=== PATIENT | male | born 1950 | race Caucasian/White ===

== ENCOUNTER 2017-08-24 09:22 | Day surgery (SDC) | payer MEDICARE, OTHER ==
[~2017-08-24] VITALS: Ht 175.3 cm; Wt 129.3 kg
[~2017-08-24 09:22] MED LIST: AMLO10TA2 PO; ASPI-999 PO; CETI-176 PO; FINA5TAB6 PO; HYDR25TA4 PO; PROP225T2 PO; PSEU240T6 PO; RANI-515 PO; RANI150T46 PO; RIVA20TA PO; VALS160T2 PO; VIT1CAPS5 PO
--- OUTSIDE RECORDS SUMMARY | 2017-08-24 09:29 | XMS REPORT ---
Author Author Axel Rader Organization [employer] Address Unknown Phone Unavailable Care Team Providers Care Bog Worker Name Role Phone Axel Rader CP Unavailable Allergies No Known Allergies Problems Problem Type Condition Code Onset Dates Condition Status Problem Chronic Anticoagulation V58.61 Active Problem Atrial flutter 427.32 Active Problem Cardiomyopathy, Nonischemic 425.4 Active Problem Hypertension 401.9 Active Problem Pre-operative cardiovascular examination V72.81 Active Problem Abnormal EKG 794.31 Active Medications No Known Medications Results No Known Results Summary Purpose eClinicalWorks Submission
[2017-08-24] MEDS ORDERED: TIMOLOL MALEATE 0.5% 5 ML (TIMOPTIC) BTL OU PRN (09:30)
[2017-08-24] MEDS ORDERED: LIDOCAINE PF 1% 2 ML AMP IR PRN (09:30)
[2017-08-24] MEDS ORDERED: EPINEPHrine INJECTION 1 MG/ML AMP INJ ONE (09:30)
[2017-08-24] MEDS ORDERED: VANCOMYCIN/BSS (COMPOUNDED) 10 MG/ML SYR OP ONE (09:30)
[2017-08-24] MEDS ORDERED: POVIDONE (BETADINE) OPHTH SOLN 5% 30 ML OP ONE (09:30)
--- OUTSIDE RECORDS SUMMARY | 2017-08-24 09:30 | XMS REPORT ---
Author Author Axel Rader Organization [facility] Address [address] [place] [address] Care Team Providers Care Director Of Development And Marketing Name Role Phone Axel Rader Unavailable PROBLEMS Type Condition ICD9-CM Code MVK27-SW Code Onset Dates Condition Status SNOMED Code Problem Abnormal EKG 794.31 Active 854551940 Problem Atrial flutter 427.32 Active 9724165 Problem Pre-operative cardiovascular examination V72.81 Active 045626939 Problem Hypertension 401.9 Active 78367306 Problem Atrial flutter I48.92 Active 0678652 Problem Chronic anticoagulation Z79.01 Active 135025140 Problem Cardiomyopathy, Nonischemic 425.4 Active 67585291 Problem Chronic Anticoagulation V58.61 Active 540263760 Problem Cardiomyopathy, nonischemic I42.9 Active 82161455 Problem Essential (primary) hypertension I10 Active 88997673 ALLERGIES Unknown Allergies SOCIAL HISTORY No smoking Hx information available PLAN OF CARE VITAL SIGNS MEDICATIONS Medication Instructions Dosage Frequency Start Date End Date Duration Status Xarelto 20 MG Orally Once a day 1 tablet with food 24h Jun, 30 day(s) Active RESULTS No Results PROCEDURES No Known procedures IMMUNIZATIONS No Known Immunizations
--- OUTSIDE RECORDS SUMMARY | 2017-08-24 09:30 | XMS REPORT | Continuity of Care Document ---
Author Author [facility] Organization [facility] Address Unknown Phone Unavailable Allergies Active Description Code Type Severity Reaction Onset Reported/Identified Relationship to Patient Clinical Status Yes DOXYCYCLINE HYCLATE MODERATE OTHER Yes doxycycline doxycycline Drug Allergy Unknown U 07/24/2014 Yes doxycycline [id number] Drug Allergy Unknown muscle spasms 03/29/2015 Medications Medication Packaging Start Date Stop Date Route Dosage Sig POLY/BACI/NEOM OINT OINT (NEOSPORIN) lexi 10/23/2016 10/23/2016 ONCE&2140 TETANUS,DIPTH,PERT ADULT INJ 0 (ADACEL SYRINGE) ml 10/23/2016 10/23/2016 ONCE&2141 CEPHALEXIN CAP 500 MG (KEFLEX) MG 10/23/2016 10/23/2016 ONCE&2141 Problems Date Dx Coded Attending Type Code Diagnosis Diagnosed By 03/29/2015 REKHA STERLING, LILY Lee Ot K57.90 DVRTCLOS OF INTEST, PART UNSP, W/O PERF 03/29/2015 REKHA STERLING, LILY Lee Ot K63.5 POLYP OF COLON 03/31/2015 REKHA STERLING, LILY Lee Ot Z01.818 03/31/2015 REKHA STERLING, LILY Lee Ot Z86.010 04/15/2015 REKHA STERLING, LILY Lee Ot Z01.818 04/15/2015 REKHA STERLING, LILY Lee Ot Z86.010 08/04/2015 Prasanth STERLING, Wassim H F E66.3 OVERWEIGHT 08/04/2015 Prasanth STERLING, Wassim H F I10 ESSENTIAL (PRIMARY) HYPERTENSION 08/04/2015 Prasanth STERLING, Wassim H F I48.91 UNSPECIFIED ATRIAL FIBRILLATION 08/04/2015 Prasanth STERLING, Wassim H F K21.9 GASTRO-ESOPHAGEAL REFLUX DISEASE WITHOUT ESOPHAGIT 08/04/2015 Prasanth STERLING, Wascarleenm H F Z68.41 BODY MASS INDEX (BMI) 40.0-44.9, ADULT 10/23/2016 ARABELLA RAJAN 883.1 OPEN WOUND OF FINGERS, COMPLICATED 10/23/2016 ARABELLA RAJAN S61.011A LACERATION W/O FB OF RIGHT THUMB W/O DAMAGE TO NAIL, INIT 08/17/2017 REKHA STERLING, LILY Lee Ot Z01.818 ENCOUNTER FOR OTHER PREPROCEDURAL EXAMIN 08/17/2017 REKHA STERLING, LILY Lee Ot Z86.010 PERSONAL HISTORY OF COLONIC POLYPS 08/17/2017 GAYATHRI STERLING, SAM Sherwood Ot H25.11 AGE-RELATED NUCLEAR CATARACT, RIGHT EYE 08/17/2017 GAYATHRI STERLING, SAM Sherwood Ot Z01.818 ENCOUNTER FOR OTHER PREPROCEDURAL EXAMIN 08/21/2017 SAM TRINH MD, Ot H25.11 AGE-RELATED NUCLEAR CATARACT, RIGHT EYE 08/21/2017 GAYATHRI STERLING, SAM Sherwood Ot Z01.818 ENCOUNTER FOR OTHER PREPROCEDURAL EXAMIN Procedures Code Description Performed By Performed On 37.26 CATHETER BASED INVASIVE ELECTROPHYSIOLOGIC TESTING 07/24/2014 37.27 CARDIAC MAPPING 07/24/2014 37.34 EXC/DESTRUCTN OF OTH LES/ TIS OF HEART, ENDOVASCULA Keith Galvez MD, Nguyễn 07/24/2014 88.72 DX ULTRASOUND-HEART Keith Galvez MD, radha 07/24/2014 Results Test Result Range B-TYPE NATRIURETIC PEPTIDE - 07/24/14 14:45 B-TYPE NATRIURETIC PEPTIDE 96 pg/mL < 100 CBC - 07/24/14 14:45 MEAN CELL HGB 28.7 pg 27.0-33.0 MEAN CELL HGB CONCENTRATION 35.4 g/dL 32.0-37.0 MEAN CELL VOLUME 81.2 fl 80.0-100.0 RED BLOOD CELL 5.68 m/cumm 4.00-6.00 RED CELL DISTRIBUTION WIDTH 13.6 % 11.0-15.6 WHITE BLOOD CELL 11.3 k/cumm 5.0-10.0 HEMOGLOBIN 16.3 gm/dL 14.0-18.0 HEMATOCRIT 46.1 % 40.0-54.0 PLATELET COUNT 256 k/cumm 150-400 PROTHROMBIN TIME WITH INR - 07/24/14 14:45 INTERNATIONAL NORMAL RATIO 1.1 0.9-1.1 PROTHROMBIN TIME 12.5 sec 9.3-12.2 PARTIAL THROMBOPLASTIN TIME - 07/24/14 14:45 PARTIAL THROMBOPLASTIN TIME 36 sec 24-36 METABOLIC PANEL, COMPREHN - 07/24/14 14:45 POTASSIUM 4.5 mmol/L 3.5-5.3 EST GFR (MDRD) > 60 mL/min > 59 ANION GAP 7 mmol/L 5-15 GLUCOSE 99 mg/dL 70-99 CALCIUM 8.8 mg/dL 8.5-10.1 BLOOD UREA NITROGEN 24 mg/dL 7-20 CREATININE 1.1 mg/dL 0.8-1.3 SODIUM 140 mmol/L 135-148 CHLORIDE 109 mmol/L 98-110 AST/SGOT 6 Units/L 10-37 ALT/SGPT 28 Units/L < 66 CARBON DIOXIDE 24 mmol/L 21-32 TOTAL PROTEIN 7.1 gm/dL 6.4-8.2 ALBUMIN 4.0 gm/dL 3.4-5.0 BILI TOTAL 0.6 mg/dL 0.0-1.0 ALKALINE PHOSPHATASE TOTAL 80 IU/L 45-117 MAGNESIUM - 07/24/14 14:45 MAGNESIUM 1.9 mg/dL 1.8-2.4 THYROID STIM HORMONE (TSH) - 07/24/14 14:45 THYROID STIM HORMONE (TSH) 0.83 uIU/mL 0.34-4.82 CBC - 08/03/15 20:57 MEAN CELL HGB 28.0 pg 27.0-33.0 MEAN CELL HGB CONCENTRATION 34.6 g/dL 32.0-37.0 MEAN CELL VOLUME 81.0 fl 80.0-100.0 RED BLOOD CELL 5.78 m/cumm 4.00-6.00 RED CELL DISTRIBUTION WIDTH 14.0 % 11.0-15.6 WHITE BLOOD CELL 11.9 k/cumm 5.0-10.0 HEMOGLOBIN 16.2 gm/dL 14.0-18.0 HEMATOCRIT 46.8 % 40.0-54.0 PLATELET COUNT 206 k/cumm 150-400 METABOLIC PANEL, BASIC - 08/03/15 20:57 POTASSIUM 3.4 mmol/L 3.5-5.3 EST GFR (MDRD) > 60 mL/min > 59 ANION GAP 8 mmol/L 5-15 EST CrCl (CG) > 60 mL/min > 59 GLUCOSE 121 mg/dL 70-99 CALCIUM 8.1 mg/dL 8.5-10.1 BLOOD UREA NITROGEN 25 mg/dL 7-20 CREATININE 0.9 mg/dL 0.7-1.3 SODIUM 142 mmol/L 135-148 CHLORIDE 111 mmol/L 98-110 CARBON DIOXIDE 23 mmol/L 21-32 TROPONIN I - 08/03/15 20:57 TROPONIN I < 0.02 ng/mL < 0.07 TROPONIN I - 08/04/15 03:25 TROPONIN I < 0.02 ng/mL < 0.07 PARTIAL THROMBOPLASTIN TIME - 08/04/15 03:25 PARTIAL THROMBOPLASTIN TIME 111 sec 23-39 TROPONIN I - 08/04/15 10:50 TROPONIN I < 0.02 ng/mL < 0.07 PTT HEPARIN PROTOCOLS - 08/04/15 10:51 PARTIAL THROMBOPLASTIN TIME 59 sec 23-39 TROPONIN I - 08/04/15 14:44 TROPONIN I < 0.02 ng/mL < 0.07 PTT HEPARIN PROTOCOLS - 08/04/15 16:57 PARTIAL THROMBOPLASTIN TIME 59 sec 23-39 CBC W/DIFF - 08/05/15 05:10 EOSINOPHIL # 0.2 k/cumm 0.1-0.5 EOSINOPHIL % 2 % 2-4 GRANULOCYTE # 5.0 k/cumm 2.0-9.0 GRANULOCYTE % 72 % 50-75 LYMPHOCYTE # 1.3 k/cumm 1.0-4.0 LYMPHOCYTE % 19 % 20-30 MEAN CELL HGB 27.9 pg 27.0-33.0 MEAN CELL HGB CONCENTRATION 35.1 g/dL 32.0-37.0 MEAN CELL VOLUME 79.5 fl 80.0-100.0 MONOCYTE # 0.5 k/cumm 0.1-1.0 MONOCYTE % 7 % 4-6 RED BLOOD CELL 5.16 m/cumm 4.00-6.00 RED CELL DISTRIBUTION WIDTH 14.5 % 11.0-15.6 WHITE BLOOD CELL 7.0 k/cumm 5.0-10.0 HEMOGLOBIN 14.4 gm/dL 14.0-18.0 HEMATOCRIT 41.0 % 40.0-54.0 PLATELET COUNT 186 k/cumm 150-400 METABOLIC PANEL, BASIC - 08/05/15 05:10 POTASSIUM 3.3 mmol/L 3.5-5.3 EST GFR (MDRD) > 60 mL/min > 59 ANION GAP 8 mmol/L 5-15 EST CrCl (CG) > 60 mL/min > 59 GLUCOSE 105 mg/dL 70-99 CALCIUM 8.5 mg/dL 8.5-10.1 BLOOD UREA NITROGEN 17 mg/dL 7-20 CREATININE 1.0 mg/dL 0.7-1.3 SODIUM 139 mmol/L 135-148 CHLORIDE 105 mmol/L 98-110 CARBON DIOXIDE 26 mmol/L 21-32 PTT HEPARIN PROTOCOLS - 08/05/15 05:10 PARTIAL THROMBOPLASTIN TIME 60 sec 23-39 Thyroid Stimulating Hormone - 05/12/16 07:16 TSH 2.31 mIU/mL 0.32-5.00 Thyroid Stimulating Hormone - 04/05/17 10:18 TSH 1.29 mIU/mL 0.32-5.00 Encounters ACCT No. Visit Date/Time Discharge Status Pt. Type Provider Facility Loc./Unit Complaint [id number] 08/21/2017 14:00:00 08/21/2017 14:19:00 DIS Outpatient SAM TRINH MD [facility] PREOP CATARACT RIGHT EYE [id number] 03/29/2015 09:25:00 03/29/2015 12:30:00 DIS Outpatient LILY DA SILVA MD [facility] HX POLYPS [id number] 03/24/2015 05:36:00 03/24/2015 23:59:59 CLS Outpatient LILY DA SILVA MD [facility] PREOP HX POLYPS [id number] 09/07/2017 09:00:00 PEN SAM Gilliam MD [facility] CATARACT LEFT EYE [id number] 08/24/2017 12:00:00 SAM Brooks MD [facility] CATARACT RIGHT EYE [id number] 07/24/2014 16:25:53 ACT Document Registration [id number] 04/05/2017 10:15:00 04/05/2017 23:59:00 DIS Outpatient Sofia Agosto [id number] 10/23/2016 20:25:00 10/23/2016 21:51:00 DIS Outpatient ARABELLA RAJAN [id number] 05/12/2016 07:12:00 05/12/2016 23:59:00 DIS Outpatient Sofia Agosto [id number] 10/23/2016 21:40:53 Document Registration [id number] 08/04/2015 14:15:00 08/06/2015 10:15:00 DIS Inpatient Prasanth STERLING, [facility] [id number] 07/24/2014 13:05:00 07/25/2014 11:10:00 DIS Outpatient Keith Galvez MD, [facility]
--- OUTSIDE RECORDS SUMMARY | 2017-08-24 09:30 | XMS REPORT ---
Author Author Axel Rader Organization [employer] Address Unknown Phone Unavailable Care Team Providers Care Control Center Operator Name Role Phone Axel Rader CP Unavailable Allergies No Known Allergies Problems Problem Type Condition Code Onset Dates Condition Status Problem Hypertension 401.9 Active Problem Pre-operative cardiovascular examination V72.81 Active Problem Abnormal EKG 794.31 Active Problem Chronic anticoagulation Z79.01 Active Problem Cardiomyopathy, nonischemic I42.9 Active Problem Atrial flutter I48.92 Active Problem Chronic Anticoagulation V58.61 Active Problem Atrial flutter 427.32 Active Problem Essential (primary) hypertension I10 Active Problem Cardiomyopathy, Nonischemic 425.4 Active Medications Medication Code System Code Instructions Start Date End Date Status Dosage Oseas [facility] [address]-59 5mg by mouth twice a day Dec 14, 2015 1 tablet Results No Known Results Summary Purpose eClinicalWorks Submission
[2017-08-24 09:40] VITALS: BP 141/91
[2017-08-24] MEDS: TETRACAINE 0.5% OPHTH SOLN 4 ML BTL (SINGLE DOSE ONLY) OU PRN ×4 (09:45→10:11)
[2017-08-24] MEDS: CYCLOPENTOLATE 1% (CYCLOGYL) 2 ML DROPS OP SCH ×3 (09:55→10:11)
[2017-08-24] MEDS: PHENYLEPHRINE 10% OPHTH (NEO-SYN) 5 ML BTL OU SCH ×3 (09:55→10:11)
--- NOTE | 2017-08-24 10:37 | Ophthalmologist Pre-Op Note ---
Pre-Operative Progress Note H&P Reviewed The H&P was reviewed, patient examined and no changes noted. Date H&P Reviewed: Aug 24, 2017 Time H&P Reviewed: 10:37 Pre-Op Dx Cataract, Right Eye SAM TRINH MD Aug 24, 2017 10:37
[2017-08-24] MEDS ORDERED: MIDAZOLAM 2 MG/2 ML (VERSED) VIAL ONE (10:41)
--- NOTE | 2017-08-24 11:07 | Ophthalmology Operative Report ---
Cataract removal/placement IOL PREOPERATIVE DIAGNOSIS: Cataract Right Eye POSTOPERATIVE DIAGNOSIS: Cataract Right Eye PROCEDURE: Cataract removal and placement of posterior chamber implant, right eye SURGEON: Cliff Trinh ANESTHESIA: Topical with sedation COMPLICATIONS: None ESTIMATED BLOOD LOSS: Minimal DESCRIPTION OF PROCEDURE: After proper informed consent was obtained, the patient, a 67 male, was taken to the Operating Room and the right eye was anesthetized with tetracaine. They right eye was then prepped and draped in the usual manner. A wire lid speculum was placed. A paracentesis was made at the left hand position. Preservative free lidocaine was injected into the anterior chamber followed by viscoelastic. A clear corneal incision was made in the temporal position. A capsulorrhexis was preformed and the central nuclear and cortical material were removed. The posterior capsule was polished and Willian 15.5 SN6CWS IOL was placed into the capsular bag. The residual viscoelastic was aspirated and balanced saline solution was injected into the anterior chamber. 1.0 mg of Vancomycin (10mg/ 1.0ml) was injected into the anterior chamber. The wound was checked and found to be water tight. The patient tolerated the procedure well without complications. CLIFF TRINH MD Aug 24, 2017 11:07
[2017-08-24 11:15] VITALS: BP 158/96
--- NOTE | 2017-08-24 13:36 | Anesthesia-General Post-Op ---
MAC Patient Condition Mental Status/LOC: Same as Preop Cardiovascular: Satisfactory Nausea/Vomiting: Absent Respiratory: Satisfactory Pain: Controlled Complications: Absent Post Op Complications Complications None Follow Up Care/Instructions Patient Instructions None needed. Anesthesiology Discharge Order Discharge Order Patient was seen after surgery and was doing well, no complaints, stable vital signs, no apparent adverse anesthesia problems. LUKE RITTER DO Aug 24, 2017 13:36
== END 2017-08-24 11:18 | disposition home or self-care (01) ==
LOC: SDC 09:22
PROVIDERS: ATTEND Specialist
DX: H26.9 Unspecified cataract (principal); I10 Essential (primary) hypertension; I48.91 Unspecified atrial fibrillation; E66.01 Morbid (severe) obesity due to excess calories; Z68.41 Body mass index [BMI] 40.0-44.9, adult; Z79.01 Long term (current) use of anticoagulants; Z79.899 Other long term (current) drug therapy

== ENCOUNTER 2017-08-31 05:42 | Outpatient (CLI) | payer MEDICARE, OTHER ==
[~2017-08-31] VITALS: Ht 175.3 cm; Wt 129.3 kg
== END 2017-08-31 11:29 ==
LOC: PREOP 05:42
PROVIDERS: ATTEND Specialist
DX: Z01.818 Encounter for other preprocedural examination (principal); H25.11 Age-related nuclear cataract, right eye

== ENCOUNTER 2017-09-07 07:27 | Day surgery (SDC) | payer MEDICARE, OTHER ==
[~2017-09-07] VITALS: Ht 175.3 cm; Wt 129.3 kg
--- OUTSIDE RECORDS SUMMARY | 2017-09-07 07:31 | XMS REPORT | Continuity of Care Document ---
Author Author [facility] Organization [facility] Address Unknown Phone Unavailable Allergies Active Description Code Type Severity Reaction Onset Reported/Identified Relationship to Patient Clinical Status Yes DOXYCYCLINE HYCLATE MODERATE OTHER Yes doxycycline doxycycline Drug Allergy Unknown U 07/24/2014 Yes doxycycline [id number] Drug Allergy Unknown muscle spasms 03/29/2015 Medications [...] REFLUX DISEASE WITHOUT ESOPHAGIT 08/04/2015 Prasanth STERLING, Wassim H F Z68.41 BODY MASS INDEX (BMI) [...] FOR OTHER PREPROCEDURAL EXAMIN 08/21/2017 SAM TRINH MD Ot H25.11 AGE-RELATED NUCLEAR CATARACT, RIGHT EYE 08/21/2017 GAYATHRI STERLING, SAM Sherwood Ot Z01.818 ENCOUNTER FOR OTHER PREPROCEDURAL EXAMIN 08/21/2017 SAM TRINH MD Ot H25.11 AGE-RELATED NUCLEAR CATARACT, RIGHT EYE 08/21/2017 SAM TRINH MD Ot Z01.818 ENCOUNTER FOR OTHER PREPROCEDURAL EXAMIN 08/24/2017 REKHA STERLING, LILY Lee Ot Z01.818 ENCOUNTER FOR OTHER PREPROCEDURAL EXAMIN 08/24/2017 REKHA STERLING, LILY Lee Ot Z86.010 PERSONAL HISTORY OF COLONIC POLYPS 09/03/2017 GAYATHRI STERLING, SAM Sherwood Ot H25.11 AGE-RELATED NUCLEAR CATARACT, RIGHT EYE 09/03/2017 SAM TRINH MD Ot Z01.818 ENCOUNTER FOR OTHER PREPROCEDURAL EXAMIN Procedures Code Description Performed By Performed On 37.26 CATHETER BASED INVASIVE ELECTROPHYSIOLOGIC TESTING 07/24/2014 37.27 CARDIAC MAPPING 07/24/2014 37.34 EXC/DESTRUCTN OF OTH LES/ TIS OF HEART, ENDOVASCULA Nguyễn Betancourt MD 07/24/2014 88.72 DX ULTRASOUND-HEART Nguyễn Betancourt MD 07/24/2014 Results Test Result Range B-TYPE NATRIURETIC [...] Status Pt. Type Provider Facility Loc./Unit Complaint [id number] 08/31/2017 05:42:00 08/31/2017 11:29:00 DIS Outpatient SAM TRINH MD [facility] PREOP CATARACT LEFT EYE [id number] 08/24/2017 09:22:00 08/24/2017 11:18:00 DIS Outpatient SAM TRINH MD [facility] CATARACT RIGHT EYE [id number] 08/21/2017 14:00:00 08/21/2017 14:19:00 DIS Outpatient SAM TRINH MD [facility] PREOP CATARACT RIGHT EYE [id number] 03/29/2015 09:25:00 03/29/2015 12:30:00 DIS Outpatient LILY DA SILVA MD [facility] HX POLYPS [id number] 03/24/2015 05:36:00 03/24/2015 23:59:59 CLS Outpatient LILY DA SILVA MD [facility] PREOP HX POLYPS [id number] 09/07/2017 07:27:00 ACT Outpatient SAM TRINH MD [facility] CATARACT LEFT EYE [id number] 07/24/2014 16:25:53 ACT Document Registration [id number] 04/05/2017 10:15:00 04/05/2017 23:59:00 DIS Outpatient Sofia Agosto [id number] 10/23/2016 20:25:00 10/23/2016 21:51:00 DIS Outpatient ARABELLA RAJAN [id number] 05/12/2016 07:12:00 05/12/2016 23:59:00 DIS Outpatient Sofia Agosto [id number] 10/23/2016 21:40:53 Document Registration [id number] 08/04/2015 14:15:00 08/06/2015 10:15:00 DIS Inpatient Prasanth STERLING, [facility] [id number] 07/24/2014 13:05:00 07/25/2014 11:10:00 DIS Outpatient Keith Galvez MD, [facility]
[2017-09-07 07:35] VITALS: BP 121/70
[2017-09-07] MEDS ORDERED: TIMOLOL MALEATE 0.5% 5 ML (TIMOPTIC) BTL OU PRN (07:45)
[2017-09-07] MEDS ORDERED: VANCOMYCIN/BSS (COMPOUNDED) 10 MG/ML SYR OP ONE (07:45)
[2017-09-07] MEDS ORDERED: POVIDONE (BETADINE) OPHTH SOLN 5% 30 ML OP ONE (07:45)
[2017-09-07] MEDS ORDERED: EPINEPHrine INJECTION 1 MG/ML AMP INJ ONE (07:45)
[2017-09-07] MEDS ORDERED: LIDOCAINE PF 1% 2 ML AMP IR PRN (07:45)
[2017-09-07] MEDS: TETRACAINE 0.5% OPHTH SOLN 4 ML BTL (SINGLE DOSE ONLY) OU PRN ×3 (07:48→08:47)
[2017-09-07] MEDS: PHENYLEPHRINE 10% OPHTH (NEO-SYN) 5 ML BTL OU SCH ×3 (08:00→08:30)
[2017-09-07] MEDS: CYCLOPENTOLATE 1% (CYCLOGYL) 2 ML DROPS OP SCH ×3 (08:00→08:30)
[2017-09-07] MEDS ORDERED: LIDOCAINE PF 1% 5 ML (XYLOCAINE) AMP ONE (08:10)
[2017-09-07] MEDS ORDERED: MIDAZOLAM 2 MG/2 ML (VERSED) VIAL ONE (08:21)
[2017-09-07 08:25] VITALS: BP 121/70
--- NOTE | 2017-09-07 08:39 | Ophthalmologist Pre-Op Note ---
Pre-Operative Progress Note H&P Reviewed The H&P was reviewed, patient examined and no changes noted. Date H&P Reviewed: September 07, 2017 Time H&P Reviewed: 08:38 Pre-Op Dx Cataract, Left Eye SAM TRINH MD September 07, 2017 08:39
--- NOTE | 2017-09-07 09:05 | Ophthalmology Operative Report ---
Cataract removal/placement IOL PREOPERATIVE DIAGNOSIS: Cataract Left Eye POSTOPERATIVE DIAGNOSIS: Cataract Left Eye PROCEDURE: Cataract removal and placement of posterior chamber implant, left eye SURGEON: Cliff Trinh ANESTHESIA: Topical with sedation COMPLICATIONS: None ESTIMATED BLOOD LOSS: Minimal DESCRIPTION OF PROCEDURE: After proper informed consent was obtained, the patient, a 67 male, was taken to the Operating Room and the left eye was anesthetized with tetracaine. They left eye was then prepped and draped in the usual manner. A wire lid speculum was placed. A paracentesis was made at the left hand position. Preservative free lidocaine was injected into the anterior chamber followed by viscoelastic. A clear corneal incision was made in the temporal position. A capsulorrhexis was preformed and the central nuclear and cortical material were removed. The posterior capsule was polished and Willian 15.0 SN6CWS IOL was placed into the capsular bag. The residual viscoelastic was aspirated and balanced saline solution was injected into the anterior chamber. 0.1 ml of Vancomycin (10mg/ 0.1ml) was injected into the anterior chamber. The wound was checked and found to be water tight. The patient tolerated the procedure well without complications. CLIFF TRINH MD September 07, 2017 09:05
[2017-09-07 09:14] VITALS: BP 121/70
--- NOTE | 2017-09-07 13:05 | Anesthesia-General Post-Op ---
MAC Patient Condition Mental Status/LOC: Same as Preop Cardiovascular: Satisfactory Nausea/Vomiting: Absent Respiratory: Satisfactory Pain: Controlled Complications: Absent Post Op Complications Complications None Follow Up Care/Instructions Patient Instructions None needed. Anesthesiology Discharge Order Discharge Order Patient is doing well, no complaints, stable vital signs, no apparent adverse anesthesia problems. No complications reported per nursing. IVANA WRIGHT CRNA September 07, 2017 13:05
== END 2017-09-07 09:15 | disposition home or self-care (01) ==
LOC: SDC 07:27
PROVIDERS: ATTEND Specialist
DX: H26.9 Unspecified cataract (principal); I10 Essential (primary) hypertension; I48.91 Unspecified atrial fibrillation; E66.01 Morbid (severe) obesity due to excess calories; Z68.41 Body mass index [BMI] 40.0-44.9, adult; Z79.01 Long term (current) use of anticoagulants; Z79.899 Other long term (current) drug therapy

== ENCOUNTER → 2020-03-03 | Outpatient (CLI) | payer OTHER, MEDICARE ==
[~2020-03-03] MED LIST changes: +AMLO-251 PO; -AMLO10TA2 PO; -RANI-515 PO; +RANI-609 PO; +RANI-613 PO; -RANI150T46 PO; -RIVA20TA PO; +RIVA20TA2 PO
== END ==
LOC: GIR 12:05
PROVIDERS: ATTEND Nurse Practitioner Family
DX: U07.1 COVID-19 (principal)
CPT/HCPCS: 84145; 87635

== ENCOUNTER 2020-03-08 18:34 | Inpatient (IN) | payer MEDICARE, OTHER ==
[~2020-03-08] VITALS: Ht 182 cm; Wt 143.4 kg
[2020-03-08] MEDS ORDERED: VANCOMYCIN INJECTION 1,000 MG in NS (IVPB) 250 ML IV SCH (19:30)
[2020-03-08] MEDS ORDERED: ENOXAPARIN 100 MG/1 ML (LOVENOX) SYR SC SCH (19:30)
--- NOTE | 2020-03-08 20:57 | Progress Note ---
Progress Note 69yoWM clinic patient of Dr Agosto who was just DC last week after weakness from COVID-19 so received convalescent plasma and Decadron and was DC in improved condition but had a "rough" weekend so went to ER this am 10 days after dx of COVID-19 and found to have hypoxia on ABG so was immediately placed on Vapotherm and given loading dose of Remdesivir and Decadron and Abx due to bilateral PNA and central line placed but still required 100% Vapotherm and was noted to have significant fatigue from breathing and no sleep for 3 days due to cough so the decision was made to intubate in order to safely transport to [facility] ICU. I did confer with Dr Vidal and updated Dr Agosto. Ashley Young, nurse elevator repairer graciously intubated the patient urgently and patient was placed on Cardizem drip due to RVR and SBP was 212/112 after intubation and HR was 177 so bolus was given of Cardizem. Dr Ha updated. ABG will be done at [facility] upon arrival. Patient took his Xarelto 20mg daily for CVA prophylaxis from chronic AF. SERA ALVARADO DO Mar 08, 2020 20:57
--- NOTE | 2020-03-08 21:34 | Diagnostic Imaging Report ---
INDICATION: Nonfunctioning central line Portable chest shows cardiomegaly with normal vascularity. There are bilateral infiltrates. There is no effusion or pneumothorax. An ET tube is present in good position above the alma. Central line is present on the left. Tip is to the left of midline near the level of the subclavian vein innominate vein junction. IMPRESSION: Support lines and tubes are present as described. There are bilateral infiltrates. Dictated by: Dictated on workstation # [id number]
[2020-03-08 21:35] VITALS: BP 148/106
[2020-03-08] MEDS ORDERED: NS IV 1000 ML 1,000 ML ONE (21:37)
[2020-03-08 21:44] LABS: BASOPHILS % (AUTO) 0 % (0-10); EOSINOPHILS % (AUTO) 0 % (0-10); HEMATOCRIT 46 % (40-54); HEMOGLOBIN 15.7 g/dL (13.3-17.7); LYMPHOCYTES # (AUTO) 0.7 10^3/uL (1.0-4.0); LYMPHOCYTES % (AUTO) 4 % (12-44); MEAN CORPUSCULAR HEMOGLOBIN 28 pg (25-34); MEAN CORPUSCULAR HGB CONC 34 g/dL (32-36); MEAN CORPUSCULAR VOLUME 83 fL (80-99); MEAN PLATELET VOLUME 11.9 fL (9.0-12.2); MONOCYTES # (AUTO) 0.5 10^3/uL (0.0-1.0); MONOCYTES % (AUTO) 3 % (0-12); NEUTROPHILS # (AUTO) 16.5 10^3/uL (1.8-7.8); NEUTROPHILS % (AUTO) 92 % (42-75); PLATELET COUNT 234 10^3/uL (130-400); WHITE BLOOD COUNT 17.9 10^3/uL (4.3-11.0)
[2020-03-08 21:48] VITALS: BP 148/106
[2020-03-08] MEDS ORDERED: fentaNYL DRIP PRE-MIX 250 ML IV ONE (22:00)
[2020-03-08 22:02] LABS: ALANINE AMINOTRANSFERASE 58 U/L (0-55); ALBUMIN 3.7 GM/DL (3.2-4.5); ALKALINE PHOSPHATASE 66 U/L (40-136); BILIRUBIN,TOTAL 0.8 MG/DL (0.1-1.0); BUN/CREATININE RATIO 21; CALCIUM 8.7 MG/DL (8.5-10.1); CARBON DIOXIDE 19 MMOL/L (21-32); CHLORIDE 97 MMOL/L (98-107); CREATININE SERUM 0.81 MG/DL (0.60-1.30); GFR ESTIMATED > 60; GLUCOSE 185 MG/DL (70-105); POTASSIUM 3.4 MMOL/L (3.6-5.0); SODIUM 133 MMOL/L (135-145); TOTAL PROTEIN 7.2 GM/DL (6.4-8.2)
[2020-03-08 22:02] LABS: ABG BASE EXCESS -1.6 MMOL/L (-2.5-2.5); ABG OXYGEN SATURATION 95 % (94-100); ABG PCO2 54 MMHG (35-45); ABG PO2 108 MMHG (79-93); ABG TCO2 25.8 MMOL/L (21.0-31.0)
[2020-03-08 22:03] LABS: ABG PH 7.28 (7.37-7.43)
[2020-03-08 22:04] LABS: ALLENS TEST POSITIVE; INSPIRED O2 100; PATIENT TEMP 37.2; VENTILATOR YES
[2020-03-08] MEDS: PROPOFOL DRIP (ICU) 100 ML IV SCH (22:14)
[2020-03-08] MEDS: NS IV 1000 ML 1,000 ML IV SCH (22:14)
[2020-03-08] MEDS: fentaNYL DRIP PRE-MIX 250 ML IV SCH (22:14)
[2020-03-08] MEDS ORDERED: ENOXAPARIN 80 MG/0.8 ML (LOVENOX) SYR SC SCH (22:15)
[2020-03-08 22:35] LABS: NEUTROPHILS % (MANUAL) 94 %
[2020-03-08 22:36] LABS: BAND NEUTROPHILS 1 %; LYMPHOCYTES % (MANUAL) 3 %; MONOCYTES % (MANUAL) 2 %; RBC MORPH NORMAL
[2020-03-08] MEDS: dilTIAZem DRIP PRE-MIX 125 ML IV SCH (22:43)
[2020-03-08] MEDS ORDERED: MIDAZOLAM FOR DRIPS 10 MG/2 ML VIAL ONE (22:51)
[2020-03-08] MEDS ORDERED: NS (IVPB) 100 ML ONE (22:52)
[2020-03-08] MEDS ORDERED: MIDAZOLAM 5 MG/5 ML (VERSED) VIAL ONE (22:56)
--- NOTE | 2020-03-08 23:18 | Progress Note ---
Progress Note Assessment/Plan Date Seen by Provider: Mar 08, 2020 Time Seen by Provider: 23:15 Events since last exam Called to ICU for central line placement as pt had poor venous access. Right neck cleansed with chlorhexidine and anesthetized with 5ml of 1% lidocaine without epi. Under US guidance the right IJ identified and punctured. Syringe detached from needle, wire threaded thru needle to 25cm. Needle removed, dilator inserted and removed. 16cm triple lumen cath inserted over the wire and wire removed. Each lumen aspirated and flshed. Claves applied. sutured in place. Placement reconfirmed with bedside US in the lumen of the right IJ. post procedure xray to confirm. Assessment/Plan as above Vitals Last set of Vitals Signs Vital Signs Date Time Temp Pulse Resp B/P (MAP) Pulse Ox O2 Delivery O2 Flow Rate FiO2 03/08/20 22:14 173/110 03/08/20 21:48 152 92 100 03/08/20 21:35 18 03/08/20 21:26 37.0 Mechanical Ventilator 100.00 Labs Laboratory Tests 03/08/20 21:29: White Blood Count 17.9H, Red Blood Count 5.61H, Hemoglobin 15.7, Hematocrit 46, Mean Corpuscular Volume 83, Mean Corpuscular Hemoglobin 28, Mean Corpuscular Hemoglobin Concent 34, Red Cell Distribution Width 13.2, Platelet Count 234, Mean Platelet Volume 11.9, Immature Granulocyte % (Auto) 1, Neutrophils (%) (Aut o) 92H, Lymphocytes (%) (Auto) 4L, Monocytes (%) (Auto) 3, Eosinophils (%) (Auto) 0, Basophils (%) (Auto) 0, Neutrophils # (Auto) 16.5H, Lymphocytes # (Auto) 0.7L, Monocytes # (Auto) 0.5, Eosinophils # (Auto) 0.0, Basophils # (Auto) 0.0, Immature Granulocyte # (Auto) 0.2H, Neutrophils % (Manual) 94, Lymphocytes % (Manual) 3, Monocytes % (Manual) 2, Band Neutrophils 1, Blood Morphology Comment NORMAL, Sodium Level 133L, Potassium Level 3.4L, Chloride Level 97L, Carbon Dioxide Level 19L, Anion Gap 17H, Blood Urea Nitrogen 17, Creatinine 0.81, Estimat Glomerular Filtration Rate > 60, BUN/Creatinine Ratio 21, Glucose Level 185H, Calcium Level 8.7, Corrected Calcium 8.9, Total Bilirubin 0.8, Aspartate Amino Transf (AST/SGOT) 55H, Alanine Aminotransferase (ALT/SGPT) 58H, Alkaline Phosphatase 66, B-Type Natriuretic Peptide 187.6H, Total Protein 7.2, Albumin 3.7 03/08/20 21:43: Blood Gas Puncture Site RIGHT RADIAL, Blood Gas Patient Temperature 37.2, Arterial Blood pH 7.28*L, Arterial Blood Partial Pressure CO2 54H, Arterial Blood Partial Pressure O2 108H, Arterial Blood HCO3 24, Arterial Blood Total CO2 25.8, Arterial Blood Oxygen Saturation 95, Arterial Blood Base Excess -1.6, Dino Test POSITIVE, Blood Gas Ventilator Setting YES, Blood Gas Inspired Oxygen 100 LIS TAYLOR COMMUNICATIONS DEPARTMENT CHAIR Mar 08, 2020 23:18
[2020-03-08] MEDS ORDERED: NS IV 500 ML 500 ML ONE (23:22)
[2020-03-08] MEDS ORDERED: NS IV 500 ML 500 ML IV SCH (23:30)
[2020-03-08] MEDS ORDERED: PHENYLEPHRINE INJ 10 MG/ML (FOR DRIP KITS ONLY) ONE (23:47)
[2020-03-08] MEDS ORDERED: NS (IVPB) 250 ML ONE (23:47)
[2020-03-08] MEDS: MIDAZOLAM INJECTION FOR DRIPS 50 MG in NS (IVPB) 90 ML IV SCH (23:55)
[2020-03-09] MEDS ORDERED: NS IV 500 ML 500 ML IV SCH
[2020-03-09] MEDS ORDERED: NS IV 500 ML 500 ML IV ONE ×2
[2020-03-09] MEDS ORDERED: PHENYLEPHRINE INJECTION 10 MG in NS (IVPB) 250 ML IV SCH ×2
[2020-03-09] MEDS ORDERED: NS (IVPB) 250 ML ONE ×2 (00:01→00:08)
[2020-03-09] MEDS ORDERED: VANCOMYCIN 500 MG/VIAL IV ONE ×2 (00:02→00:08)
[2020-03-09] MEDS ORDERED: VANCOMYCIN 750 MG/VIAL IV ONE ×2 (00:02→00:08)
[2020-03-09] MEDS: CEFEPIME INJECTION 1,000 MG in WATER (STERILE) FOR INJECTION 10 ML IV SCH ×5 (00:07→23:58)
[2020-03-09] MEDS: inSUlin ASPART (NovoLOG) 1 UNIT/0.01 ML (CHARGE PER UNIT) SC SCH ×4 (00:22→16:58)
[2020-03-09] MEDS: VANCOMYCIN 1250 MG/NS 250 ML IVPB IV SCH ×8 (00:24→23:14)
[2020-03-09] MEDS: PROPOFOL DRIP (ICU) 100 ML IV SCH ×3 (01:10→18:02)
[2020-03-09 02:30] LABS: BASOPHILS % (AUTO) 0 % (0-10); EOSINOPHILS % (AUTO) 0 % (0-10); HEMATOCRIT 40 % (40-54); HEMOGLOBIN 13.6 g/dL (13.3-17.7); LYMPHOCYTES # (AUTO) 0.5 10^3/uL (1.0-4.0); LYMPHOCYTES % (AUTO) 3 % (12-44); MEAN CORPUSCULAR HEMOGLOBIN 28 pg (25-34); MEAN CORPUSCULAR HGB CONC 34 g/dL (32-36); MEAN CORPUSCULAR VOLUME 83 fL (80-99); MEAN PLATELET VOLUME 12.3 fL (9.0-12.2); MONOCYTES # (AUTO) 0.4 10^3/uL (0.0-1.0); MONOCYTES % (AUTO) 2 % (0-12); NEUTROPHILS # (AUTO) 19.4 10^3/uL (1.8-7.8); NEUTROPHILS % (AUTO) 94 % (42-75); PLATELET COUNT 295 10^3/uL (130-400); WHITE BLOOD COUNT 20.6 10^3/uL (4.3-11.0)
[2020-03-09 02:36] LABS: ALANINE AMINOTRANSFERASE 50 U/L (0-55); ALBUMIN 3.2 GM/DL (3.2-4.5); ALKALINE PHOSPHATASE 53 U/L (40-136); BILIRUBIN,TOTAL 0.4 MG/DL (0.1-1.0); BUN/CREATININE RATIO 19; CARBON DIOXIDE 19 MMOL/L (21-32); CHLORIDE 98 MMOL/L (98-107); CREATININE SERUM 1.11 MG/DL (0.60-1.30); GFR ESTIMATED > 60; GLUCOSE 197 MG/DL (70-105); MAGNESIUM 2.1 MG/DL (1.6-2.4); PHOSPHORUS 4.1 MG/DL (2.3-4.7); POTASSIUM 3.1 MMOL/L (3.6-5.0); SODIUM 133 MMOL/L (135-145); TOTAL PROTEIN 6.2 GM/DL (6.4-8.2)
[2020-03-09 02:46] LABS: ABG BASE EXCESS -3.6 MMOL/L (-2.5-2.5); ABG OXYGEN SATURATION 93 % (94-100); ABG PCO2 40 MMHG (35-45); ABG PO2 81 MMHG (79-93); ABG TCO2 22.7 MMOL/L (21.0-31.0); ALLENS TEST NEGATIVE; INSPIRED O2 80; PATIENT TEMP 36.1; VENTILATOR YES
[2020-03-09 02:47] LABS: BILIRUBIN,URINE NEGATIVE (NEGATIVE); CLARITY,URINE TURBID; COLOR,URINE AMBER; GLUCOSE, URINE (UA) NEGATIVE (NEGATIVE); KETONES,URINE NEGATIVE (NEGATIVE); LEUKOCYTE ESTERASE ,URINE NEGATIVE (NEGATIVE); NITRITE,URINE NEGATIVE (NEGATIVE); PROTEIN,URINE 2+ (NEGATIVE)
[2020-03-09 02:47] LABS: ABG PH 7.34 (7.37-7.43)
[2020-03-09 02:49] VITALS: BP 94/59
[2020-03-09] MEDS: RT-ALBUTEROL INHALER HFA (VENTOLIN HFA) 18 GM IH SCH ×7 (02:49→22:16)
[2020-03-09] MEDS: PHENYLEPHRINE DOUBLE STRENGTH 20MG/ 250 ML IV SCH ×4 (03:03→04:49)
[2020-03-09 03:18] LABS: BACTERIA,URINE LARGE /HPF; RBC,URINE 25-50 /HPF
[2020-03-09] MEDS ORDERED: NOREPINEPHRINE 4 MG/250 ML 250 ML IV ONE (03:38)
[2020-03-09] MEDS: NOREPINEPHRINE 4 MG/250 ML 250 ML IV SCH ×4 (03:40→20:15)
[2020-03-09] MEDS ORDERED: ALBUMIN 25% 25 GM/100 ML 100 ML IV ONE (03:45)
[2020-03-09] MEDS ORDERED: NS (IVPB) 100 ML ONE (03:54)
[2020-03-09] MEDS ORDERED: VASOPRESSIN INJECTION 20 UNIT/ML VIAL ONE (03:55)
[2020-03-09] MEDS: POTASSIUM CL 10MEQ/50ML IVPB 50 ML IV SCH ×8 (03:57→09:01)
[2020-03-09] MEDS ORDERED: VASOPRESSIN INJECTION 20 UNIT in NS (IVPB) 100 ML IV SCH (04:00)
--- NOTE | 2020-03-09 04:10 | Pulmonary Consultation ---
History of Present Illness History of Present Illness Date Seen by Provider: Mar 09, 2020 Time Seen by Provider: 04:15 Date of Admission Allergies and Home Medications Allergies Coded Allergies: doxycycline (Verified Allergy, Unknown, muscle spasms, 03/24/15) Home Medications Amlodipine Besylate 10 Mg Tablet, 10 MG PO DAILY, (Reported) Cetirizine HCl 10 Mg Tablet, 10 MG PO DAILY, (Reported) Finasteride 5 Mg Tablet, 5 MG PO HS, (Reported) Hydrochlorothiazide 25 Mg Tablet, 25 MG PO DAILY, (Reported) Propafenone HCl 225 Mg Tablet, 225 MG PO TID, (Reported) Ranitidine HCl 150 Mg Tablet, 150 MG PO DAILY, (Reported) Rivaroxaban 20 Mg Tablet, 20 MG PO DAILY, (Reported) Valsartan 160 Mg Tablet, 160 MG PO DAILY, (Reported) Vit A/C/E/Zinc/Co 1 Cap Capsule, 2 CAP PO BID, (Reported) Review of Systems Time Seen by Provider: 04:15 Sepsis Event Evaluation Height, Weight, BMI Height: 5'9.00" Weight: 285lbs. 0.0oz. 129.617085zk; 38.34 BMI Method: Exam Exam Vital Signs Date Time Temp Pulse Resp B/P (MAP) Pulse Ox O2 Delivery O2 Flow Rate FiO2 03/09/20 03:40 87 94/59 03/09/20 03:03 87 94/59 03/09/20 02:49 87 19 90 80 03/09/20 01:20 36.8 85 Mechanical Ventilator 80.00 03/09/20 01:10 85 76/42 03/09/20 01:00 85 03/09/20 00:00 96 Mechanical Ventilator 100 03/08/20 23:56 152 173/110 03/08/20 23:55 152 18 173/110 03/08/20 22:14 173/110 03/08/20 21:48 152 92 100 03/08/20 21:35 152 18 92 100 03/08/20 21:26 37.0 163 18 148/106 90 Mechanical Ventilator 100.00 03/08/20 21:15 157 I & O 03/09/20 07:00 Intake Total 250 ml Output Total 360 ml Balance -110 ml Height & Weight Height: 5'9.00" Weight: 285lbs. 0.0oz. 129.672074wv; 38.34 BMI Method: General Appearance: Other (sedated on vent ) HEENT: PERRL/EOMI, Normal ENT Inspection, Pharynx Normal Neck: Full Range of Motion, Non Tender, Supple Respiratory: Chest Non Tender, No Accessory Muscle Use, No Respiratory Distres s, Decreased Breath Sounds Capillary Refill: Less Than 3 Seconds Gastrointestinal: normal bowel sounds, non tender, soft Extremity: Normal Capillary Refill, No Pedal Edema Skin: Normal Color, Warm/Dry Results Lab Laboratory Tests 03/08/20 21:29 03/09/20 02:00 Assessment/Plan Assessment/Plan Acute respiratory distress secondary to COVID - 19 with severe ARDS -Continue vent -[place] body weight -- 76.8 -Will decrease VT to 460 and increase PEEP to 14 and RR to 24 -Repeat ABG in 1hr after change -remdesivir, and CVP Septic shock pneumonia -Continue Cefepime, Vanco -Cantrell cultures pending -LA is normal -Give 30cc/kg of IVF -continue Levophed and wean neosynephrin -Start Vasopressin BETH FALL DO Mar 09, 2020 04:09
[2020-03-09] MEDS: MAGNESIUM 1 GM/100 ML IVPB 100 ML IV SCH (04:13)
[2020-03-09] MEDS: KCL 20 MEQ TAB (K-DUR) PO SCH (04:13)
[2020-03-09] MEDS ORDERED: NS IV 1000 ML 1,000 ML IV SCH (04:15)
[2020-03-09 05:44] LABS: ABG BASE EXCESS -3.5 MMOL/L (-2.5-2.5); ABG OXYGEN SATURATION 91 % (94-100); ABG PCO2 36 MMHG (35-45); ABG PH 7.38 (7.37-7.43); ABG PO2 74 MMHG (79-93)
[2020-03-09 05:48] LABS: ALLENS TEST NEGATIVE; INSPIRED O2 55; PATIENT TEMP 36.7; VENTILATOR YES
--- NOTE | 2020-03-09 06:27 | Diagnostic Imaging Report ---
Portable erect AP chest at 1113 hours. INDICATION: Central line placement. FINDINGS: In the interval since the exam performed earlier, the ET tube noted previously remains in good position. Today at 9:18 PM central venous catheter has been inserted on the right. The tip of the catheter overlies the midportion of the superior vena cava and seems to be in good position. There is no sign of a pneumothorax on the right. Also, in the interval since the prior exam, an NG line has been inserted. The tip of line overlies the gastric body. The overall appearance of chest has not changed significantly otherwise. IMPRESSION: 1. There has been interval insertion of a central venous catheter on the right and NG tube without apparent complication. 2. The overall appearance of the chest is otherwise stable. A follow-up exam would be recommended for continued evaluation. Dictated by: Dictated on workstation # [id number]
[2020-03-09] MEDS: NS IV 1000 ML 1,000 ML IV SCH ×3 (07:02→16:59)
[2020-03-09 07:33] VITALS: BP 108/66
[2020-03-09] MEDS: RT-ALBUTEROL INHALER HFA (VENTOLIN HFA) 18 GM IH PRN (07:33)
--- NOTE | 2020-03-09 08:28 | Anesthesia-Procedure Note ---
Procedures/Interventions Procedure Start/Stop/Diagnosis Date of Procedure: Mar 09, 2020 Start Time: 06:50 Stop Time: 07:45 Arterial Line Arterial Line Catheter: 22G Type: Radial Location: Right Procedure: prepped, draped in sterile fashion, catheter sutured in place, good wave-form was obtained, patient tolerated procedure well, no immediate complications, post procedure dressing applied [facility] TRAN CRNA Mar 09, 2020 08:28
[2020-03-09] MEDS: PANTOPRAZOLE 40 MG (PROTONIX) VIAL IV SCH (08:36)
[2020-03-09] MEDS ORDERED: FAMO20TA5 PO (09:49)
[2020-03-09] MEDS ORDERED: METO-333 PO (09:49)
[2020-03-09] MEDS ORDERED: LOSA50TA63 PO (09:49)
[2020-03-09] MEDS ORDERED: ASPI-1238 PO (09:49)
[2020-03-09] MEDS ORDERED: CETI10TA4 PO (09:49)
[2020-03-09] MEDS ORDERED: DEXA4TAB66 PO (09:49)
[2020-03-09] MEDS ORDERED: MULT-1136 PO (09:54)
[2020-03-09] MEDS ORDERED: RT-ALBUINH INH (09:54)
[2020-03-09] MEDS ORDERED: ACET-2840 PO (09:54)
[2020-03-09] MEDS ORDERED: TRIA10.8 NSEACH (09:54)
[2020-03-09] MEDS ORDERED: BUDE10.2 IH (09:54)
--- NOTE | 2020-03-09 09:56 | NUR ---
UNABLE TO SPEAK WITH PT AT THIS TIME- I DID CALL HIS (COREY), WENT THRU THE EXT MED HISTORY, CALLED [facility] TO COMPLETE THE MED REC THERE ARE SEVERAL MEDICATIONS THAT SHOW ON THE EXT MED HISTORY THAT THE PT IS NOT CURRENTLY TAKING (IT LOOKS IF [facility] WAS BILLING 7 DAY SUPPLIES)- ACCORDING TO COREY THE PT IS NOT TAKING THE FOLLOWING MEDICATIONS: LISINOPRIL 20MG (DUE TO COUGH W/ LISINOPRIL IT WAS SWITCHED TO LOSARTAN) LEVOTHYROXINE 75MCG- PER COREY PT HAS NEVER BEEN ON THYROID MEDICATION VALSARTAN AND MELOXICAM- BOTH THESE SHOW ON THE EXT MED HISTORY FOR SMALL QUANTITIES AND COREY INDICATES SHE HAS NO RECORD OF THE PT TAKING THESE MEDICATIONS PROPAFENONE 225MG- DIRECTIONS ON THE MED REC FIRST SHOW 1 TAB BID HOWEVER UNDER THAT ENTRY ALSO SHOWS 1 TAB TID- ACCORDING TO COREY PT IS TAKING 225MG Q 8H WHEN PT WAS AT [facility] HE WAS GIVEN SYMBICORT 160/4.5 AND ALBUTEROL HFA AND BOTH INHALERS WERE SENT HOME WITH HIM OTC MEDS: TYLENOL 650MG PRN MTV NASACORT PRN ASPIRIN 81MG ZYRTEC PRN
[2020-03-09 11:07] VITALS: BP 107/73
[2020-03-09] MEDS: REMDESIVIR INJ 100 MG in NS (IVPB) 230 ML IV SCH (11:20)
[2020-03-09] MEDS: ENOXAPARIN 300 MG/3 ML (LOVENOX) MULTI-DOSE VIAL SQ SCH ×2 (11:21→23:58)
[2020-03-09] MEDS: MIDAZOLAM INJECTION FOR DRIPS 50 MG in NS (IVPB) 90 ML IV SCH ×2 (12:42→19:58)
[2020-03-09] MEDS: fentaNYL DRIP PRE-MIX 250 ML IV SCH ×3 (12:43→23:11)
--- NOTE | 2020-03-09 14:33 | NUR ---
Note pt is currently intubated and sedated. Note plan of care is for pt to remain intubated for several days. Would recommend initiation of following TF: Pulmocare 1.5 at rate of 15ml/hr with flushes of 25ml water q4h for hydration and to prevent tube from clogging. Will continue to follow and reassess as pt needs, intake, and status change. Varghese Mo MS RD LD [phone] (cell)
[2020-03-09 14:38] VITALS: BP 90/58
[2020-03-09 19:04] VITALS: BP 96/63
[2020-03-09] MEDS: dilTIAZem DRIP PRE-MIX 125 ML IV SCH (20:15)
[2020-03-09] MEDS ORDERED: TROUGH ORDER-PHARMACY XX NR (22:00)
[2020-03-09 22:16] VITALS: BP 97/66
[2020-03-10] MEDS: inSUlin ASPART (NovoLOG) 1 UNIT/0.01 ML (CHARGE PER UNIT) SC SCH ×4 (00:12→17:50)
[2020-03-10] MEDS: PROPOFOL DRIP (ICU) 100 ML IV SCH ×7 (01:03→22:53)
[2020-03-10] MEDS: NOREPINEPHRINE 4 MG/250 ML 250 ML IV SCH ×6 (01:04→22:53)
[2020-03-10 02:26] LABS: ABG BASE EXCESS -3.9 MMOL/L (-2.5-2.5); ABG OXYGEN SATURATION 93 % (94-100); ABG PCO2 43 MMHG (35-45); ABG PO2 79 MMHG (79-93); ABG TCO2 22.8 MMOL/L (21.0-31.0); BASOPHILS % (AUTO) 0 % (0-10); EOSINOPHILS % (AUTO) 0 % (0-10); HEMATOCRIT 35 % (40-54); HEMOGLOBIN 11.8 g/dL (13.3-17.7); LYMPHOCYTES # (AUTO) 0.4 10^3/uL (1.0-4.0); LYMPHOCYTES % (AUTO) 4 % (12-44); MEAN CORPUSCULAR HEMOGLOBIN 28 pg (25-34); MEAN CORPUSCULAR HGB CONC 34 g/dL (32-36); MEAN CORPUSCULAR VOLUME 84 fL (80-99); MEAN PLATELET VOLUME 11.6 fL (9.0-12.2); MONOCYTES # (AUTO) 0.3 10^3/uL (0.0-1.0); MONOCYTES % (AUTO) 3 % (0-12); NEUTROPHILS # (AUTO) 8.8 10^3/uL (1.8-7.8); NEUTROPHILS % (AUTO) 93 % (42-75); PLATELET COUNT 201 10^3/uL (130-400); WHITE BLOOD COUNT 9.5 10^3/uL (4.3-11.0)
[2020-03-10 02:28] LABS: ALLENS TEST POSITIVE; INSPIRED O2 100; PATIENT TEMP 36.2; VENTILATOR YES
[2020-03-10 02:29] LABS: ABG PH 7.32 (7.37-7.43)
[2020-03-10 02:35] LABS: CHLORIDE 109 MMOL/L (98-107); POTASSIUM 4.1 MMOL/L (3.6-5.0); SODIUM 138 MMOL/L (135-145)
[2020-03-10 02:36] LABS: CALCIUM 7.7 MG/DL (8.5-10.1)
[2020-03-10 02:37] LABS: GLUCOSE 151 MG/DL (70-105)
[2020-03-10 02:38] LABS: CARBON DIOXIDE 19 MMOL/L (21-32)
[2020-03-10 02:40] LABS: PHOSPHORUS 2.5 MG/DL (2.3-4.7)
[2020-03-10 02:41] LABS: CREATININE SERUM 0.79 MG/DL (0.60-1.30); GFR ESTIMATED > 60
[2020-03-10 02:42] LABS: BUN/CREATININE RATIO 32
[2020-03-10 02:43] LABS: MAGNESIUM 2.2 MG/DL (1.6-2.4)
[2020-03-10] MEDS: MAGNESIUM 1 GM/100 ML IVPB 100 ML IV SCH (02:44)
[2020-03-10] MEDS: POTASSIUM CL 10MEQ/50ML IVPB 50 ML IV SCH (02:44)
[2020-03-10] MEDS: KCL 20 MEQ TAB (K-DUR) PO SCH (02:44)
[2020-03-10 03:16] VITALS: BP 114/70
[2020-03-10] MEDS: RT-ALBUTEROL INHALER HFA (VENTOLIN HFA) 18 GM IH SCH ×4 (03:16→14:58)
--- NOTE | 2020-03-10 04:47 | Pulmonary Progress Note ---
Subjective Time Seen by a Provider: 04:42 Subjective/Events-last exam Pt is sedated on vent. Sepsis Event Evaluation Height, Weight, BMI Height: 5'9.00" Weight: 285lbs. 0.0oz. 129.528595ho; 38.34 BMI Method: Focused Exam Lactate Level 03/09/20 02:00: Lactic Acid Level 1.81 Exam Exam Vital Signs Date Time Temp Pulse Resp B/P (MAP) Pulse Ox O2 Delivery O2 Flow Rate FiO2 03/10/20 03:40 84 120/70 03/10/20 03:16 84 24 94 90 03/10/20 02:37 36.4 03/10/20 02:27 87 125/76 03/10/20 01:00 85 03/10/20 00:00 36.4 03/09/20 22:16 93 24 91 100 03/09/20 20:00 96 Mechanical Ventilator 100 03/09/20 19:58 80 93/67 03/09/20 19:04 92 28 89 100 03/09/20 19:00 90 03/09/20 18:02 97 03/09/20 18:00 88 24 90 Mechanical Ventilator 100.00 03/09/20 17:00 82 23 90 Mechanical Ventilator 100.00 03/09/20 16:00 87 22 88 Mechanical Ventilator 100.00 03/09/20 16:00 96 Mechanical Ventilator 100 03/09/20 15:40 Mechanical Ventilator 100.00 03/09/20 15:08 115 03/09/20 15:00 87 25 Mechanical Ventilator 60.00 03/09/20 14:38 90 28 89 100 03/09/20 14:00 73 21 95 Mechanical Ventilator 60.00 03/09/20 13:00 76 25 95 Mechanical Ventilator 60.00 03/09/20 12:49 84 03/09/20 12:42 78 03/09/20 12:00 96 Mechanical Ventilator 100 03/09/20 12:00 75 30 94 Mechanical Ventilator 60.00 03/09/20 11:17 36.9 03/09/20 11:07 84 28 94 100 03/09/20 11:00 74 32 96 Mechanical Ventilator 60.00 03/09/20 10:00 75 23 95 Mechanical Ventilator 60.00 03/09/20 09:03 36.4 03/09/20 09:00 78 19 93 Mechanical Ventilator 60.00 03/09/20 08:38 80 03/09/20 08:00 96 Mechanical Ventilator 100 03/09/20 08:00 85 20 94 Mechanical Ventilator 60.00 03/09/20 08:00 Automatic Cuff 03/09/20 07:33 86 24 91 55 03/09/20 07:00 86 21 118/94 94 Mechanical Ventilator 60.00 03/09/20 06:46 90 03/09/20 06:00 100 19 119/69 94 Mechanical Ventilator 60.00 03/09/20 05:56 87 94/59 03/09/20 05:08 87 22 105/69 94 Mechanical Ventilator 60.00 03/09/20 04:49 87 94/59 I & O 03/10/20 07:00 Intake Total 450 ml Output Total 960 ml Balance -510 ml Height & Weight Height: 5'9.00" Weight: 285lbs. 0.0oz. 129.931704xd; 38.34 BMI Method: General Appearance: Other (sedated on vent ) HEENT: PERRL/EOMI, Normal ENT Inspection, Pharynx Normal Neck: Full Range of Motion, Non Tender, Supple Respiratory: Chest Non Tender, No Accessory Muscle Use, No Respiratory Distress, Decreased Breath Sounds Capillary Refill: Less Than 3 Seconds Gastrointestinal: normal bowel sounds, non tender, soft Extremity: Normal Capillary Refill, No Pedal Edema Skin: Normal Color, Warm/Dry Results Lab Laboratory Tests 03/08/20 21:29 03/09/20 02:00 03/10/20 02:15 Assessment/Plan Assessment/Plan Acute respiratory distress secondary to COVID - 19 with severe ARDS -Continue vent -[place] body weight -- 76.8 -Will decrease VT to 460 and increase PEEP to 14 and RR to 24 -Repeat ABG in 1hr after change -remdesivir, and CVP Septic shock pneumonia -Continue Cefepime, Vanco -Cantrell cultures pending -LA is normal -Give 30cc/kg of IVF -continue Levophed and wean neosynephrin -Start Vasopressin BEHT FALL DO Mar 10, 2020 04:47
[2020-03-10] MEDS: NS IV 1000 ML 1,000 ML IV SCH ×2 (05:25→16:53)
[2020-03-10] MEDS: CEFEPIME INJECTION 1,000 MG in WATER (STERILE) FOR INJECTION 10 ML IV SCH ×3 (05:26→18:16)
[2020-03-10] MEDS: MIDAZOLAM INJECTION FOR DRIPS 50 MG in NS (IVPB) 90 ML IV SCH ×2 (05:27→19:56)
[2020-03-10] MEDS: fentaNYL DRIP PRE-MIX 250 ML IV SCH ×3 (05:30→22:41)
[2020-03-10 07:15] VITALS: BP 89/61
--- NOTE | 2020-03-10 08:18 | NUR ---
pt was getting prone by anesthesia. rt was called to room by rn. pt vent was alarming circuit disconnect. anesthesia was bagging pt with no O2 turned on. pt was desaturating. rt analyzed situation and the expiratory tube was disconnected from vent. Addendum: 03/10/20 at 0848 by AGUILA LEE RT Amended: Links added.
--- NOTE | 2020-03-10 08:20 | Physical Therapy Progress Note ---
Therapy Progress Note Performed (B) UE OBI Rose PT Mar 10, 2020 08:20
[2020-03-10] MEDS: dexAMETHasone INJECTION 20 MG in NS (IVPB) 50 ML IV SCH (08:43)
[2020-03-10] MEDS: PANTOPRAZOLE 40 MG (PROTONIX) VIAL IV SCH (08:43)
--- NOTE | 2020-03-10 08:55 | Diagnostic Imaging Report ---
INDICATION: Respiratory failure. TECHNIQUE/COMPARISON: An AP view of the chest was obtained with comparison made to a study of 03/08/2020. FINDINGS: There has been mild worsening of central airspace disease bilaterally with mild background diffuse airspace disease. No pneumothorax or significant pleural fluid is identified. An endotracheal tube is in place with the tip projecting over the lower trachea. A nasogastric tube passes below the diaphragm. The right jugular central venous catheter is in stable position. IMPRESSION: Background edema and/or pneumonitis throughout the lungs with increasing central airspace disease which could be due to superimposed edema or pneumonia. Dictated by: Dictated on workstation # [id number]
[2020-03-10 10:51] VITALS: BP 109/66
[2020-03-10] MEDS: REMDESIVIR INJ 100 MG in NS (IVPB) 230 ML IV SCH (11:50)
[2020-03-10] MEDS: ENOXAPARIN 300 MG/3 ML (LOVENOX) MULTI-DOSE VIAL SQ SCH (11:51)
--- NOTE | 2020-03-10 14:24 | Consultation-Cardiology ---
HPI-Cardiology Cardiology Consultation Date of Consultation 03/10/20 Date of Admission Time Seen by Provider: 14:20 Indication: acute respiratory failure HPI 69-year-old gentleman with COVID-19 pneumonia respiratory failure, ventilatory dependent, were consulted for supraventricular tachycardia. On my evaluation patient was intubated and sedated, unable to provide any history, history was obtained by reviewing his record Home Medications & Allergies Allergies: Coded Allergies: doxycycline (Verified Allergy, Unknown, muscle spasms, 03/24/15) Home Medication List Reviewed: Yes PJC-Bkigpn-Ezscit Hx Past Medical History Discussed below Family Medical History Family Medical Hx Noncontributory Review of Systems-General Review of Systems Constitutional: other (unable to provide review of systems, sedated and intubated) Reviewed Test Results Reviewed Test Results Lab Laboratory Tests Test 03/09/20 16:57 03/09/20 21:25 03/10/20 00:10 03/10/20 02:15 Range/Units Glucometer 172 H 145 H 70-110 MG/DL Vancomycin Level Trough 13.8 10.0-20.0 UG/ML White Blood Count 9.5 4.3-11.0 10^3/uL Red Blood Count 4.19 L 4.30-5.52 10^6/uL Hemoglobin 11.8 L 13.3-17.7 g/dL Hematocrit 35 L 40-54 % Mean Corpuscular Volume 84 80-99 fL Mean Corpuscular Hemoglobin 28 25-34 pg Mean Corpuscular Hemoglobin Concent 34 32-36 g/dL Red Cell Distribution Width 14.2 10.0-14.5 % Platelet Count 201 130-400 10^3/uL Mean Platelet Volume 11.6 9.0-12.2 fL Immature Granulocyte % (Auto) 1 % Neutrophils (%) (Auto) 93 H 42-75 % Lymphocytes (%) (Auto) 4 L 12-44 % Monocytes (%) (Auto) 3 0-12 % Eosinophils (%) (Auto) 0 0-10 % Basophils (%) (Auto) 0 0-10 % Neutrophils # (Auto) 8.8 H 1.8-7.8 10^3/uL Lymphocytes # (Auto) 0.4 L 1.0-4.0 10^3/uL Monocytes # (Auto) 0.3 0.0-1.0 10^3/uL Eosinophils # (Auto) 0.0 0.0-0.3 10^3/uL Basophils # (Auto) 0.0 0.0-0.1 10^3/uL Immature Granulocyte # (Auto) 0.1 0.0-0.1 10^3/uL Blood Gas Puncture Site ARTLINE Blood Gas Patient Temperature 36.2 Arterial Blood pH 7.32 *L 7.37-7.43 Arterial Blood Partial Pressure CO2 43 35-45 MMHG Arterial Blood Partial Pressure O2 79 79-93 MMHG Arterial Blood HCO3 21 L 23-27 MMOL/L Arterial Blood Total CO2 22.8 21.0-31.0 MMOL/L Arterial Blood Oxygen Saturation 93 L 94-100 % Arterial Blood Base Excess -3.9 L -2.5-2.5 MMOL/L Dino Test POSITIVE Blood Gas Ventilator Setting YES Blood Gas Inspired Oxygen 100 Sodium Level 138 135-145 MMOL/L Potassium Level 4.1 3.6-5.0 MMOL/L Chloride Level 109 H 98-107 MMOL/L Carbon Dioxide Level 19 L 21-32 MMOL/L Anion Gap 10 5-14 MMOL/L Blood Urea Nitrogen 25 H 7-18 MG/DL Creatinine 0.79 0.60-1.30 MG/DL Estimat Glomerular Filtration Rate > 60 BUN/Creatinine Ratio 32 Glucose Level 151 H 70-105 MG/DL Calcium Level 7.7 L 8.5-10.1 MG/DL Phosphorus Level 2.5 2.3-4.7 MG/DL Magnesium Level 2.2 1.6-2.4 MG/DL Test 03/10/20 11:22 Range/Units Glucometer 139 H 70-110 MG/DL Physical Exam Physical Exam Vital Signs Vital Signs - First Documented 03/08/20 03/08/20 03/08/20 21:15 21:26 21:35 Temp 37.0 Pulse 157 Resp 18 B/P (MAP) 148/106 Pulse Ox 90 O2 Delivery Mechanical Ventilator O2 Flow Rate 100.00 FiO2 100 Capillary Refill : Less Than 3 Seconds Height, Weight, BMI Height: 5'9.00" Weight: 285lbs. 0.0oz. 129.828450yn; 38.34 BMI Method: General Appearance: Other (sedated on vent ) HEENT: PERRL/EOMI Neck: Full Range of Motion, Supple, Carotid Bruit Respiratory: Other (ventilatory dependent) Cardiovascular: Regular Rate, Rhythm Extremity: No Pedal Edema Neurologic/Psychiatric: Other (sedated and intubated) Skin: Normal Color, Warm/Dry A/P-Cardiology Admission Diagnosis Proximal atrial tachycardia Acute respiratory failure ARDS COVID-19 pneumonia Assessment/Plan Paroxysmal supraventricular tachycardia probably secondary to respiratory failure, back to sinus rhythm, continue to monitor Acute respiratory failure secondary to pneumonia with ARDS, COVID-19. Managed by Dr. Vidal Status post septic shock with pneumonia, improving. Continue to monitor Clinical Quality Measures DVT/VTE Risk/Contraindication: Risk Factor Score Per Nursin RFS Level Per Nursing on Admit: 4+=Very High QUITA THOMSON MD Mar 10, 2020 14:24
[2020-03-10 14:58] VITALS: BP 112/77
[2020-03-10] MEDS: RT-ALBUTEROL INHALER HFA (VENTOLIN HFA) 18 GM IH PRN (19:00)
[2020-03-10] MEDS: dilTIAZem DRIP PRE-MIX 125 ML IV SCH (19:33)
[2020-03-11] MEDS: CEFEPIME INJECTION 1,000 MG in WATER (STERILE) FOR INJECTION 10 ML IV SCH ×4 (00:55→17:57)
[2020-03-11] MEDS: inSUlin ASPART (NovoLOG) 1 UNIT/0.01 ML (CHARGE PER UNIT) SC SCH ×4 (00:55→18:14)
[2020-03-11] MEDS: ENOXAPARIN 300 MG/3 ML (LOVENOX) MULTI-DOSE VIAL SQ SCH ×2 (00:55→12:49)
[2020-03-11] MEDS: RT-ALBUTEROL INHALER HFA (VENTOLIN HFA) 18 GM IH PRN ×5 (01:00→21:37)
[2020-03-11] MEDS: PROPOFOL DRIP (ICU) 100 ML IV SCH ×5 (03:03→23:46)
[2020-03-11] MEDS: NS IV 1000 ML 1,000 ML IV SCH ×3 (03:11→20:20)
[2020-03-11 03:19] LABS: ABG BASE EXCESS -4.4 MMOL/L (-2.5-2.5); ABG OXYGEN SATURATION 95 % (94-100); ABG PCO2 38 MMHG (35-45); ABG PO2 82 MMHG (79-93); ABG TCO2 21.8 MMOL/L (21.0-31.0); BASOPHILS % (AUTO) 0 % (0-10); EOSINOPHILS % (AUTO) 0 % (0-10); HEMATOCRIT 37 % (40-54); LYMPHOCYTES # (AUTO) 0.3 10^3/uL (1.0-4.0); LYMPHOCYTES % (AUTO) 3 % (12-44); MEAN CORPUSCULAR HEMOGLOBIN 28 pg (25-34); MEAN CORPUSCULAR HGB CONC 32 g/dL (32-36); MEAN CORPUSCULAR VOLUME 86 fL (80-99); MEAN PLATELET VOLUME 11.6 fL (9.0-12.2); MONOCYTES # (AUTO) 0.4 10^3/uL (0.0-1.0); MONOCYTES % (AUTO) 3 % (0-12); NEUTROPHILS % (AUTO) 92 % (42-75); PLATELET COUNT 222 10^3/uL (130-400); WHITE BLOOD COUNT 10.8 10^3/uL (4.3-11.0)
[2020-03-11] MEDS: KCL 20 MEQ TAB (K-DUR) PO SCH (03:46)
[2020-03-11] MEDS: MAGNESIUM 1 GM/100 ML IVPB 100 ML IV SCH (03:46)
[2020-03-11] MEDS: POTASSIUM CL 10MEQ/50ML IVPB 50 ML IV SCH (03:46)
[2020-03-11 04:02] LABS: ABG PH 7.34 (7.37-7.43); ALLENS TEST ARTLINE; INSPIRED O2 60%; VENTILATOR YES
[2020-03-11 04:03] LABS: PATIENT TEMP 35.6
[2020-03-11 04:12] LABS: CHLORIDE 112 MMOL/L (98-107); POTASSIUM 4.2 MMOL/L (3.6-5.0); SODIUM 140 MMOL/L (135-145)
[2020-03-11 04:14] LABS: CALCIUM 8.2 MG/DL (8.5-10.1); GLUCOSE 167 MG/DL (70-105)
[2020-03-11 04:16] LABS: CARBON DIOXIDE 17 MMOL/L (21-32)
[2020-03-11 04:18] LABS: CREATININE SERUM 0.87 MG/DL (0.60-1.30); GFR ESTIMATED > 60; PHOSPHORUS 2.3 MG/DL (2.3-4.7)
[2020-03-11 04:19] LABS: BUN/CREATININE RATIO 34
[2020-03-11 04:20] LABS: MAGNESIUM 2.7 MG/DL (1.6-2.4)
--- NOTE | 2020-03-11 04:51 | Pulmonary Progress Note ---
Subjective Time Seen by a Provider: 04:46 Subjective/Events-last exam Sedated on vent. Sepsis Event Evaluation Height, Weight, BMI Height: 5'9.00" Weight: 285lbs. 0.0oz. 129.863760yu; 38.34 BMI Method: Focused Exam Lactate Level 03/09/20 02:00: Lactic Acid Level 1.81 Exam Exam Vital Signs Date Time Temp Pulse Resp B/P (MAP) Pulse Ox O2 Delivery O2 Flow Rate FiO2 03/11/20 04:00 94 23 94 Mechanical Ventilator 60.00 03/11/20 03:03 102 113/75 03/11/20 03:00 97 14 95 Mechanical Ventilator 60.00 03/11/20 02:00 94 20 93 Mechanical Ventilator 60.00 03/11/20 01:00 102 24 97 50 03/11/20 01:00 91 03/11/20 01:00 93 26 94 Mechanical Ventilator 60.00 03/11/20 00:54 35.6 Mechanical Ventilator 60.00 03/11/20 00:00 93 22 94 Mechanical Ventilator 60.00 03/10/20 23:00 82 26 95 Mechanical Ventilator 60.00 03/10/20 22:53 85 113/75 03/10/20 22:53 85 113/75 03/10/20 22:04 85 24 97 50 03/10/20 22:00 91 23 98 Mechanical Ventilator 60.00 03/10/20 21:00 98 Mechanical Ventilator 70 03/10/20 21:00 78 25 98 Mechanical Ventilator 60.00 03/10/20 20:01 35.0 Mechanical Ventilator 60.00 03/10/20 20:00 78 23 98 Mechanical Ventilator 70.00 03/10/20 19:56 73 24 113/75 03/10/20 19:00 Mechanical Ventilator 70.00 03/10/20 19:00 79 24 99 Mechanical Ventilator 70.00 03/10/20 19:00 73 24 98 80 03/10/20 19:00 86 03/10/20 18:17 113/75 03/10/20 18:00 77 23 100 Mechanical Ventilator 80.00 03/10/20 17:00 79 23 99 Mechanical Ventilator 80.00 03/10/20 16:10 35.3 03/10/20 16:00 81 24 99 Mechanical Ventilator 80.00 03/10/20 15:00 75 23 94 Mechanical Ventilator 80.00 03/10/20 14:58 79 24 95 80 03/10/20 14:00 77 24 96 Mechanical Ventilator 80.00 03/10/20 13:58 117/63 03/10/20 13:00 83 28 95 Mechanical Ventilator 80.00 03/10/20 12:40 77 03/10/20 12:00 80.00 03/10/20 12:00 75 17 91 Mechanical Ventilator 80.00 03/10/20 11:52 35.9 03/10/20 11:00 82 24 95 Mechanical Ventilator 100.00 03/10/20 10:51 75 24 95 80 03/10/20 10:00 75 19 96 Mechanical Ventilator 100.00 03/10/20 09:00 86 24 96 Mechanical Ventilator 100.00 03/10/20 08:43 103/64 03/10/20 08:30 35.7 03/10/20 08:00 85 19 96 Mechanical Ventilator 100.00 03/10/20 08:00 97 Mechanical Ventilator 100 03/10/20 07:15 82 24 93 90 03/10/20 07:00 75 23 93 Mechanical Ventilator 100.00 03/10/20 06:42 74 03/10/20 06:00 80 23 91 Mechanical Ventilator 100.00 03/10/20 05:27 80 112/69 03/10/20 05:00 80 24 93 Mechanical Ventilator 100.00 I & O 03/11/20 07:00 Intake Total 0 ml Output Total 1175 ml Balance -1175 ml Height & Weight Height: 5'9.00" Weight: 285lbs. 0.0oz. 129.029418xf; 38.34 BMI Method: General Appearance: Other (sedated on vent ) HEENT: PERRL/EOMI Neck: Full Range of Motion, Supple, Carotid Bruit Respiratory: Other (ventilatory dependent) Cardiovascular: Regular Rate, Rhythm Capillary Refill: Less Than 3 Seconds Gastrointestinal: normal bowel sounds, non tender, soft Extremity: No Pedal Edema Neurologic/Psychiatric: Other (sedated and intubated) Skin: Normal Color, Warm/Dry Results Lab Laboratory Tests 03/10/20 02:15 03/11/20 03:00 Assessment/Plan Assessment/Plan Acute respiratory distress secondary to COVID - 19 with severe ARDS -Continue vent -Check BNP, and DDIMer -Start TF -Decrease sedation. -Daily sedation vacation while supine position. -Decrease PEEP to 16 -[place] body weight -- 76.8 VT 460 and increase RR to 24 -remdesivir, and CVP Septic shock pneumonia -Continue Cefepime, Azithromycin -Cantrell cultures pending -LA is normal -Give 30cc/kg of IVF -D/C Levophed , neosynephrin and vasopressin are off DVT/GI ppx -Lovenox, and protonix BETH FALL DO Mar 11, 2020 04:51
[2020-03-11] MEDS ORDERED: SODIUM PHOSPHATE INJ 15 MM in D5W 100 ML IVPB 100 ML IV ONE (05:00)
[2020-03-11] MEDS: fentaNYL DRIP PRE-MIX 250 ML IV SCH ×3 (06:22→23:46)
[2020-03-11] MEDS: MIDAZOLAM INJECTION FOR DRIPS 50 MG in NS (IVPB) 90 ML IV SCH ×2 (06:22→20:08)
--- NOTE | 2020-03-11 07:37 | Diagnostic Imaging Report ---
INDICATION: Respiratory failure Single view of the chest is obtained. Since the study of one day earlier, diffuse airspace disease and groundglass opacity have shown minimal change. Support tubes remain in stable position. There is no pneumothorax. IMPRESSION: Minimal change in mixed groundglass density and alveolar disease in both lungs compatible with pneumonia or extensive pneumonitis. Dictated by: Dictated on workstation # [id number]
[2020-03-11] MEDS: PANTOPRAZOLE 40 MG (PROTONIX) VIAL IV SCH (08:45)
[2020-03-11] MEDS: dexAMETHasone INJECTION 20 MG in NS (IVPB) 50 ML IV SCH (08:45)
[2020-03-11] MEDS: RT-ALBUTEROL INHALER HFA (VENTOLIN HFA) 18 GM IH SCH (10:36)
[2020-03-11] MEDS: REMDESIVIR INJ 100 MG in NS (IVPB) 230 ML IV SCH (10:42)
[2020-03-11 11:10] VITALS: BP 113/62
[2020-03-11 14:55] VITALS: BP 115/65
--- NOTE | 2020-03-11 15:40 | Cardiology Progress Note ---
Subjective Date Seen by Provider: Mar 11, 2020 Time Seen by Provider: 09:00 Subjective/Events-last exam Patient was seen at bedside, sedated Review of Systems General: Other (sedated and ventilatory dependent) Focused Exam Lactate Level 03/09/20 02:00: Lactic Acid Level 1.81 Objective-Cardiology Exam Last Set of Vital Signs Vital Signs 03/11/20 03/11/20 03/11/20 03/11/20 07:26 10:42 14:55 15:00 Temp 35.6 Pulse 74 Resp 17 B/P (MAP) 114/59 Pulse Ox 90 O2 Delivery Mechanical Ventilator O2 Flow Rate 50.00 FiO2 50 Capillary Refill : Less Than 3 Seconds I&O Intake and Output 03/11/20 00:00 Intake Total 450 ml Output Total 1750 ml Balance -1300 ml Intake Oral 0 ml IV Total 450 ml Output Urine Total 1750 ml General: Other (sedated and intubated) HEENT: Atraumatic Neck: Supple Lungs: Other (ventilator dependent) Heart: Regular Rate Neuro: Other (sedated and intubated) Psych/Mental Status: Other (sedated and intubated) Results Lab Laboratory Tests 03/11/20 03:00 A/P-Cardiology Admission Diagnosis Proximal atrial tachycardia Acute respiratory failure ARDS COVID-19 pneumonia Assessment/Plan Paroxysmal supraventricular tachycardia probably secondary to respiratory failure, back to sinus rhythm, continue to monitor Acute respiratory failure secondary to pneumonia with ARDS, COVID-19. Managed by Dr. Vidal Status post septic shock with pneumonia, improving. Continue to monitor X No change in cardiac status. Continue to monitor Clinical Quality Measures DVT/VTE Risk/Contraindication: Risk Factor Score Per Nursin RFS Level Per Nursing on Admit: 4+=Very High QUITA THOMSON MD Mar 11, 2020 15:40
--- NOTE | 2020-03-11 15:42 | NUR ---
During care rounds, it was noted that pt currently on Pulmocare at rate of 15ml/hr with flushes of 20ml water q4h. Would recommend continuation at current rate at this time. Will continue to follow and reassess as pt needs, intake, and status change. Varghese Mo, MS RD LD [phone] (cell)
[2020-03-11 18:44] VITALS: BP 116/64
[2020-03-11] MEDS: dilTIAZem DRIP PRE-MIX 125 ML IV SCH (19:13)
[2020-03-11 21:37] VITALS: BP 117/64
[2020-03-12] MEDS: inSUlin ASPART (NovoLOG) 1 UNIT/0.01 ML (CHARGE PER UNIT) SC SCH ×5 (00:43→23:28)
[2020-03-12] MEDS: CEFEPIME INJECTION 1,000 MG in WATER (STERILE) FOR INJECTION 10 ML IV SCH ×5 (00:44→23:28)
[2020-03-12] MEDS: ENOXAPARIN 300 MG/3 ML (LOVENOX) MULTI-DOSE VIAL SQ SCH ×3 (00:48→23:28)
[2020-03-12] MEDS: RT-ALBUTEROL INHALER HFA (VENTOLIN HFA) 18 GM IH PRN (01:30)
[2020-03-12 01:31] VITALS: BP 101/61
[2020-03-12 03:28] LABS: ABG BASE EXCESS -4.3 MMOL/L (-2.5-2.5); ABG OXYGEN SATURATION 96 % (94-100); ABG PCO2 35 MMHG (35-45); ABG PH 7.38 (7.37-7.43); ABG PO2 81 MMHG (79-93); ABG TCO2 21.4 MMOL/L (21.0-31.0); ALLENS TEST ART LINE; BASOPHILS % (AUTO) 0 % (0-10); EOSINOPHILS % (AUTO) 0 % (0-10); HEMATOCRIT 35 % (40-54); HEMOGLOBIN 11.5 g/dL (13.3-17.7); INSPIRED O2 40%; LYMPHOCYTES # (AUTO) 0.3 10^3/uL (1.0-4.0); LYMPHOCYTES % (AUTO) 3 % (12-44); MEAN CORPUSCULAR HEMOGLOBIN 28 pg (25-34); MEAN CORPUSCULAR HGB CONC 33 g/dL (32-36); MEAN CORPUSCULAR VOLUME 86 fL (80-99); MEAN PLATELET VOLUME 11.3 fL (9.0-12.2); MONOCYTES # (AUTO) 0.3 10^3/uL (0.0-1.0); MONOCYTES % (AUTO) 3 % (0-12); NEUTROPHILS # (AUTO) 8.7 10^3/uL (1.8-7.8); NEUTROPHILS % (AUTO) 91 % (42-75); PATIENT TEMP 35.6; PLATELET COUNT 229 10^3/uL (130-400); VENTILATOR YES; WHITE BLOOD COUNT 9.5 10^3/uL (4.3-11.0)
[2020-03-12 03:52] LABS: BUN/CREATININE RATIO 43; CALCIUM 8.1 MG/DL (8.5-10.1); CARBON DIOXIDE 17 MMOL/L (21-32); CHLORIDE 114 MMOL/L (98-107); CREATININE SERUM 0.95 MG/DL (0.60-1.30); GFR ESTIMATED > 60; GLUCOSE 197 MG/DL (70-105); MAGNESIUM 2.9 MG/DL (1.6-2.4); PHOSPHORUS 2.4 MG/DL (2.3-4.7); POTASSIUM 4.3 MMOL/L (3.6-5.0); SODIUM 142 MMOL/L (135-145)
--- NOTE | 2020-03-12 05:06 | Pulmonary Progress Note ---
Subjective Time Seen by a Provider: 05:01 Sepsis Event Evaluation Height, Weight, BMI Height: 5'9.00" Weight: 285lbs. 0.0oz. 129.139688wq; 38.34 BMI Method: Exam Exam Vital Signs Date Time Temp Pulse Resp B/P (MAP) Pulse Ox O2 Delivery O2 Flow Rate FiO2 03/12/20 04:00 98 24 95 Mechanical Ventilator 40.00 03/12/20 03:00 98 17 96 Mechanical Ventilator 40.00 03/12/20 02:00 94 21 94 Mechanical Ventilator 40.00 03/12/20 01:35 Mechanical Ventilator 40.00 03/12/20 01:31 99 26 95 40 03/12/20 01:00 102 18 95 Mechanical Ventilator 50.00 03/12/20 01:00 105 03/12/20 00:00 92 21 96 Mechanical Ventilator 50.00 03/11/20 23:46 106 117/64 03/11/20 23:00 106 18 95 Mechanical Ventilator 50.00 03/11/20 22:00 91 21 95 Mechanical Ventilator 50.00 03/11/20 21:37 101 26 98 45 03/11/20 21:00 98 20 97 Mechanical Ventilator 50.00 03/11/20 21:00 92 Mechanical Ventilator 50 03/11/20 20:09 35.0 Mechanical Ventilator 50.00 03/11/20 20:08 88 24 116/64 03/11/20 20:00 95 23 96 Mechanical Ventilator 55.00 03/11/20 19:00 100 03/11/20 19:00 96 20 96 Mechanical Ventilator 55.00 03/11/20 18:44 88 24 98 50 03/11/20 18:00 98 16 95 Mechanical Ventilator 55.00 03/11/20 17:59 116/68 03/11/20 17:00 87 17 95 Mechanical Ventilator 55.00 03/11/20 16:00 82 17 91 Mechanical Ventilator 55.00 03/11/20 15:50 Mechanical Ventilator 55.00 03/11/20 15:00 74 17 90 Mechanical Ventilator 50.00 03/11/20 14:55 75 24 91 50 03/11/20 14:00 77 23 92 Mechanical Ventilator 50.00 03/11/20 13:00 80 24 90 Mechanical Ventilator 50.00 03/11/20 12:21 83 03/11/20 12:00 73 23 92 Mechanical Ventilator 50.00 03/11/20 11:10 80 24 92 50 03/11/20 11:00 77 24 92 Mechanical Ventilator 50.00 03/11/20 10:42 114/59 03/11/20 10:00 82 24 92 Mechanical Ventilator 50.00 03/11/20 09:00 85 24 92 Mechanical Ventilator 50.00 03/11/20 08:00 92 Mechanical Ventilator 50 03/11/20 08:00 89 23 92 Mechanical Ventilator 50.00 03/11/20 07:26 35.6 50.00 03/11/20 07:00 95 03/11/20 07:00 94 21 94 Mechanical Ventilator 60.00 03/11/20 06:22 94 21 113/75 03/11/20 06:22 94 113/75 03/11/20 06:00 94 21 95 Mechanical Ventilator 60.00 I & O 03/12/20 07:00 Intake Total 120 ml Output Total 775 ml Balance -655 ml Height & Weight Height: 5'9.00" Weight: 285lbs. 0.0oz. 129.578827gd; 38.34 BMI Method: General Appearance: Other (sedated on vent ) HEENT: PERRL/EOMI Neck: Full Range of Motion, Supple, Carotid Bruit Respiratory: Other (ventilatory dependent) Cardiovascular: Regular Rate, Rhythm Capillary Refill: Less Than 3 Seconds Gastrointestinal: normal bowel sounds, non tender, soft Extremity: No Pedal Edema Neurologic/Psychiatric: Other (sedated and intubated) Skin: Normal Color, Warm/Dry Results Lab Laboratory Tests 03/11/20 03:00 03/12/20 03:15 Assessment/Plan Assessment/Plan Acute respiratory distress secondary to COVID - 19 with severe ARDS -Continue vent -Check BNP, and DDIMer -TF -Decrease sedation. -Daily sedation vacation while supine position. - PEEP to 16 Decrease 14 -[place] body weight -- 76.8 VT 460 and increase RR to 24 -remdesivir, and CVP Septic shock pneumonia -Continue Cefepime, Azithromycin -Cantrell cultures pending -LA is normal -Give 30cc/kg of IVF -D/C Levophed , neosynephrin and vasopressin are off DVT/GI ppx -Lovenox, and protonix BETH FALL DO Mar 12, 2020 05:06
[2020-03-12] MEDS: POTASSIUM CL 10MEQ/50ML IVPB 50 ML IV SCH (05:14)
[2020-03-12] MEDS: MAGNESIUM 1 GM/100 ML IVPB 100 ML IV SCH (05:14)
[2020-03-12] MEDS: KCL 20 MEQ TAB (K-DUR) PO SCH (05:14)
[2020-03-12] MEDS: PROPOFOL DRIP (ICU) 100 ML IV SCH ×4 (05:41→23:44)
[2020-03-12] MEDS: RT-ALBUTEROL INHALER HFA (VENTOLIN HFA) 18 GM IH SCH ×6 (06:30→23:42)
[2020-03-12 07:46] VITALS: BP 101/61
--- NOTE | 2020-03-12 08:14 | Physical Therapy Progress Note ---
Therapy Progress Note Performed (B) UE/DUSTIN PROM OBI KAHN PT Mar 12, 2020 08:14
--- NOTE | 2020-03-12 08:23 | Diagnostic Imaging Report ---
INDICATION: COVID, supine to prone positioning protocol EXAMINATION: Chest 03/12/2020 COMPARISON: 03/11/2020 FINDINGS: Two views of the chest Tubes and lines stable. Heart is prominent. Pulmonary vasculature is congested. There are increased interstitial and airspace opacities in both lungs, similar to previous imaging. IMPRESSION: 1. Persistent bilateral infiltrates Dictated by: Dictated on workstation # [id number]
[2020-03-12] MEDS: PANTOPRAZOLE 40 MG (PROTONIX) VIAL IV SCH (09:18)
[2020-03-12] MEDS: dexAMETHasone INJECTION 20 MG in NS (IVPB) 50 ML IV SCH (09:18)
--- NOTE | 2020-03-12 10:25 | Cardiology Progress Note ---
Subjective Date Seen by Provider: Mar 12, 2020 Time Seen by Provider: 10:24 Subjective/Events-last exam Patient was seen, laying down in bed. Ventilatory dependent Review of Systems General: Other (unable to provide review of systems) Objective-Cardiology Exam Last Set of Vital Signs Vital Signs 03/12/20 03/12/20 03/12/20 03/12/20 03/12/20 03/12/20 05:41 06:00 07:46 08:11 08:30 09:17 Temp 36.1 Pulse 59 Resp 26 B/P (MAP) 101/61 Pulse Ox 96 O2 Delivery Mechanical Ventilator O2 Flow Rate 40.00 FiO2 40 Capillary Refill : Less Than 3 Seconds I&O Intake and Output 03/12/20 00:00 Intake Total 1960 ml Output Total 875 ml Balance 1085 ml Intake Oral 60 ml IV Total 1900 ml Output Urine Total 875 ml General: Other (sedated and intubated) HEENT: Atraumatic Lungs: Other (ventilator dependent) Heart: Regular Rate Neuro: Other (sedated and intubated) Psych/Mental Status: Other (sedated and intubated) Results Lab Laboratory Tests 03/12/20 03:15 A/P-Cardiology Admission Diagnosis Proximal atrial tachycardia Acute respiratory failure ARDS COVID-19 pneumonia Assessment/Plan Paroxysmal supraventricular tachycardia probably secondary to respiratory failu re, back to sinus rhythm, continue to monitor Acute respiratory failure secondary to pneumonia with ARDS, COVID-19. Managed by Dr. Vidal Status post septic shock with pneumonia, improving. Continue to monitor X No change in cardiac status. Continue to monitor Clinical Quality Measures DVT/VTE Risk/Contraindication: Risk Factor Score Per Nursin RFS Level Per Nursing on Admit: 4+=Very High QUITA THOMSON MD Mar 12, 2020 10:25
[2020-03-12 11:03] VITALS: BP 112/54
[2020-03-12] MEDS: REMDESIVIR INJ 100 MG in NS (IVPB) 230 ML IV SCH (11:54)
[2020-03-12] MEDS ORDERED: LACTATED RINGERS 1,000 ML IV ONE (12:57)
[2020-03-12] MEDS ORDERED: MIDAZOLAM DRIP PRE-MIX 100 ML IV ONE (12:58)
[2020-03-12] MEDS: MIDAZOLAM DRIP PRE-MIX 100 ML IV SCH (13:08)
[2020-03-12] MEDS ORDERED: LACTATED RINGERS 1,000 ML IV SCH (13:15)
--- NOTE | 2020-03-12 14:15 | NUR ---
Dr. Vidal notified of decreased urine output this shift. Order for 1L LR bolus
[2020-03-12 14:30] VITALS: BP 117/54
--- NOTE | 2020-03-12 15:44 | NUR ---
During care rounds, it was noted that pt currently on Pulmocare at rate of 15ml/hr with flushes of 20ml water q4h. Would recommend conservative increases of 10ml q12h toward goal rate of 55ml/hr. Will continue to follow and reassess as pt needs, intake, and status change. Varghese Mo, MS RD LD [phone] (cell)
[2020-03-12] MEDS ORDERED: MIDAZOLAM DRIP PRE-MIX 100 ML IV SCH (17:00)
[2020-03-12] MEDS: fentaNYL DRIP PRE-MIX 250 ML IV SCH (17:25)
[2020-03-12] MEDS: NS IV 1000 ML 1,000 ML IV SCH (17:58)
[2020-03-12] MEDS: dilTIAZem DRIP PRE-MIX 125 ML IV SCH (19:30)
[2020-03-12 19:35] VITALS: BP 114/58
--- NOTE | 2020-03-12 22:41 | NUR ---
TeleICU notified of low urine output, orders received.
[2020-03-12] MEDS ORDERED: FUROSEMIDE 40 MG/4 ML INJ (LASIX) ONE (22:44)
[2020-03-12] MEDS ORDERED: FUROSEMIDE 40 MG/4 ML INJ (LASIX) IVP ONE (22:45)
[2020-03-12 23:47] VITALS: BP 139/67
[2020-03-13 03:54] VITALS: BP 162/74
[2020-03-13] MEDS: RT-ALBUTEROL INHALER HFA (VENTOLIN HFA) 18 GM IH SCH ×6 (03:54→23:51)
[2020-03-13 04:06] LABS: ABG OXYGEN SATURATION 93 % (94-100); ABG PCO2 32 MMHG (35-45); ABG PH 7.42 (7.37-7.43); ABG PO2 67 MMHG (79-93); ABG TCO2 21.9 MMOL/L (21.0-31.0)
[2020-03-13 04:07] LABS: BASOPHILS % (AUTO) 0 % (0-10); EOSINOPHILS % (AUTO) 0 % (0-10); HEMATOCRIT 36 % (40-54); LYMPHOCYTES # (AUTO) 0.5 10^3/uL (1.0-4.0); LYMPHOCYTES % (AUTO) 4 % (12-44); MEAN CORPUSCULAR HEMOGLOBIN 28 pg (25-34); MEAN CORPUSCULAR HGB CONC 33 g/dL (32-36); MEAN CORPUSCULAR VOLUME 85 fL (80-99); MEAN PLATELET VOLUME 11.3 fL (9.0-12.2); MONOCYTES # (AUTO) 0.4 10^3/uL (0.0-1.0); MONOCYTES % (AUTO) 3 % (0-12); NEUTROPHILS % (AUTO) 86 % (42-75); PLATELET COUNT 256 10^3/uL (130-400); WHITE BLOOD COUNT 12.8 10^3/uL (4.3-11.0)
[2020-03-13 04:12] LABS: ALLENS TEST ART LINE; PATIENT TEMP 36.4; VENTILATOR YES
[2020-03-13 04:18] LABS: CHLORIDE 113 MMOL/L (98-107); POTASSIUM 4.2 MMOL/L (3.6-5.0); SODIUM 142 MMOL/L (135-145)
[2020-03-13 04:19] LABS: CALCIUM 8.5 MG/DL (8.5-10.1); GLUCOSE 151 MG/DL (70-105)
[2020-03-13 04:21] LABS: CARBON DIOXIDE 18 MMOL/L (21-32)
[2020-03-13 04:23] LABS: CREATININE SERUM 1.04 MG/DL (0.60-1.30); GFR ESTIMATED > 60; PHOSPHORUS 3.3 MG/DL (2.3-4.7)
[2020-03-13 04:24] LABS: BUN/CREATININE RATIO 57
--- NOTE | 2020-03-13 04:36 | Pulmonary Progress Note ---
Subjective Time Seen by a Provider: 04:35 Subjective/Events-last exam worsening leukocytosis and requiring more oxygen. Sepsis Event Evaluation Height, Weight, BMI Height: 5'9.00" Weight: 285lbs. 0.0oz. 129.289451tc; 38.34 BMI Method: Exam Exam Vital Signs Date Time Temp Pulse Resp B/P (MAP) Pulse Ox O2 Delivery O2 Flow Rate FiO2 03/13/20 04:16 36.4 03/13/20 03:54 51 31 91 55 03/13/20 03:00 49 15 145/69 91 Mechanical Ventilator 55.00 03/13/20 02:16 Mechanical Ventilator 55.00 03/13/20 02:00 56 26 152/75 97 Mechanical Ventilator 45.00 03/13/20 01:00 48 03/13/20 01:00 47 17 130/63 92 Mechanical Ventilator 45.00 03/13/20 00:07 36.2 03/13/20 00:00 48 23 136/66 93 Mechanical Ventilator 45.00 03/12/20 23:47 47 27 93 50 03/12/20 23:44 47 135/67 03/12/20 23:00 48 24 121/59 93 Mechanical Ventilator 45.00 03/12/20 22:14 Mechanical Ventilator 45.00 03/12/20 22:00 48 23 120/60 94 Mechanical Ventilator 50.00 03/12/20 21:00 48 20 121/61 95 Mechanical Ventilator 50.00 03/12/20 21:00 Mechanical Ventilator 50 03/12/20 20:33 Mechanical Ventilator 50.00 03/12/20 20:00 36.5 03/12/20 20:00 49 18 121/61 95 Mechanical Ventilator 50.00 03/12/20 19:35 51 27 93 50 03/12/20 19:00 Mechanical Ventilator 50.00 03/12/20 19:00 53 20 122/61 96 Mechanical Ventilator 50.00 03/12/20 19:00 53 03/12/20 18:00 51 18 96 Mechanical Ventilator 40.00 03/12/20 17:58 58 117/54 03/12/20 17:37 Mechanical Ventilator 40.00 03/12/20 17:27 36.4 03/12/20 17:00 50 20 98 Mechanical Ventilator 60.00 03/12/20 16:00 58 24 96 Mechanical Ventilator 60.00 03/12/20 15:55 Mechanical Ventilator 60.00 03/12/20 15:03 Mechanical Ventilator 100.00 03/12/20 15:00 58 19 95 Mechanical Ventilator 40.00 03/12/20 14:30 54 26 94 40 03/12/20 14:00 59 23 94 Mechanical Ventilator 40.00 03/12/20 13:19 58 03/12/20 13:08 58 24 112/54 03/12/20 13:00 57 23 94 Mechanical Ventilator 40.00 03/12/20 12:00 58 24 93 Mechanical Ventilator 40.00 03/12/20 11:58 36.3 03/12/20 11:55 56 112/54 03/12/20 11:03 56 24 94 40 03/12/20 11:00 55 24 94 Mechanical Ventilator 40.00 03/12/20 10:00 56 23 96 Mechanical Ventilator 40.00 03/12/20 09:17 96 Mechanical Ventilator 40 03/12/20 09:00 53 21 96 Mechanical Ventilator 40.00 03/12/20 08:30 36.1 03/12/20 08:11 59 03/12/20 08:00 57 23 95 Mechanical Ventilator 40.00 03/12/20 07:46 57 26 94 40 03/12/20 07:00 62 21 96 Mechanical Ventilator 40.00 03/12/20 06:00 64 20 94 Mechanical Ventilator 40.00 03/12/20 05:41 98 101/61 03/12/20 05:00 115 16 96 Mechanical Ventilator 40.00 I & O 03/13/20 07:00 Intake Total 3467 ml Output Total 340 ml Balance 3127 ml Height & Weight Height: 5'9.00" Weight: 285lbs. 0.0oz. 129.775706ez; 38.34 BMI Method: General Appearance: Other (sedated on vent ) HEENT: PERRL/EOMI Neck: Full Range of Motion, Supple, Carotid Bruit Respiratory: Other (ventilatory dependent) Cardiovascular: Regular Rate, Rhythm Capillary Refill: Less Than 3 Seconds Gastrointestinal: normal bowel sounds, non tender, soft Extremity: No Pedal Edema Neurologic/Psychiatric: Other (sedated and intubated) Skin: Normal Color, Warm/Dry Results Lab Laboratory Tests 03/12/20 03:15 03/13/20 03:50 Assessment/Plan Assessment/Plan Acute respiratory distress secondary to COVID - 19 with severe ARDS -Continue vent -Check BNP, and DDIMer -repeat sandhu cultures -Advanco Abx to Vanco and Merrem -TF -Decrease sedation. -Daily sedation vacation while supine position. - PEEP 14 -[place] body weight -- 76.8 VT 460 and increase RR to 24 -remdesivir, and CVP Septic shock pneumonia -Continue Cefepime, Azithromycin -Sandhu cultures pending -LA is normal -Give 30cc/kg of IVF -D/C Levophed , neosynephrin and vasopressin are off DVT/GI ppx -Lovenox, and protonix BETH FALL DO Mar 13, 2020 04:36
[2020-03-13] MEDS ORDERED: VANCOMYCIN INJECTION 1,000 MG in NS (IVPB) 250 ML IV SCH (04:45)
[2020-03-13] MEDS ORDERED: NS (IVPB) 250 ML ONE (04:52)
[2020-03-13] MEDS ORDERED: VANCOMYCIN 1000 MG/VIAL ONE (04:52)
[2020-03-13] MEDS: MEROPENEM 500 MG in WATER (STERILE) FOR INJECTION 10 ML IV SCH ×3 (05:31→17:13)
[2020-03-13] MEDS: MAGNESIUM 1 GM/100 ML IVPB 100 ML IV SCH (05:31)
[2020-03-13] MEDS: KCL 20 MEQ TAB (K-DUR) PO SCH (05:31)
[2020-03-13] MEDS: inSUlin ASPART (NovoLOG) 1 UNIT/0.01 ML (CHARGE PER UNIT) SC SCH ×3 (05:31→17:17)
[2020-03-13] MEDS: POTASSIUM CL 10MEQ/50ML IVPB 50 ML IV SCH (05:31)
[2020-03-13] MEDS: PROPOFOL DRIP (ICU) 100 ML IV SCH ×4 (05:45→20:19)
[2020-03-13 06:26] LABS: BILIRUBIN,URINE NEGATIVE (NEGATIVE); CLARITY,URINE CLOUDY; COLOR,URINE YELLOW; GLUCOSE, URINE (UA) NEGATIVE (NEGATIVE); KETONES,URINE NEGATIVE (NEGATIVE); LEUKOCYTE ESTERASE ,URINE NEGATIVE (NEGATIVE); NITRITE,URINE NEGATIVE (NEGATIVE); PH,URINE 5.5 (5-9); PROTEIN,URINE TRACE (NEGATIVE)
[2020-03-13 06:44] LABS: BACTERIA,URINE FEW /HPF; RBC,URINE >100 /HPF; SQUAMOUS EPITHELIAL CELL,UR 0-2 /HPF; WBC,URINE RARE /HPF
[2020-03-13 07:31] VITALS: BP 127/49
--- NOTE | 2020-03-13 08:27 | Diagnostic Imaging Report ---
INDICATION: COVID 19 positive, ventilator support prone to supine protocol. COMPARISON STUDY: Chest from yesterday. FINDINGS: A portable semiupright view chest demonstrates an endotracheal tube, orogastric tube and central venous catheter remain in place. Heart size remains upper normal. Patchy bilateral pulmonary infiltrates have slightly increased in the left upper lung. IMPRESSION: Patchy bilateral pulmonary infiltrates have slightly increased in the left upper lung. Report was faxed to [facility] Infection Control by [facility] at 8:27AM. Dictated by: Dictated on workstation # [id number]
[2020-03-13] MEDS ORDERED: fentaNYL DRIP PRE-MIX 250 ML IV ONE ×2 (08:28→19:55)
[2020-03-13] MEDS: PANTOPRAZOLE 40 MG (PROTONIX) VIAL IV SCH (08:31)
[2020-03-13] MEDS: dexAMETHasone INJECTION 20 MG in NS (IVPB) 50 ML IV SCH (08:31)
[2020-03-13] MEDS: fentaNYL DRIP PRE-MIX 250 ML IV SCH ×2 (08:32→20:19)
--- NOTE | 2020-03-13 09:48 | Cardiology Progress Note ---
Subjective Date Seen by Provider: Mar 13, 2020 Time Seen by Provider: 09:46 Subjective/Events-last exam Patient is sedated and intubated Review of Systems General: Other (unable to provide review of systems) Focused Exam Lactate Level 03/13/20 05:40: Lactic Acid Level 0.99 Objective-Cardiology Exam Last Set of Vital Signs Vital Signs 03/13/20 03/13/20 03/13/20 03/13/20 08:00 08:28 08:35 08:48 Temp 36.8 Pulse 41 Resp 18 B/P (MAP) 123/49 Pulse Ox 95 O2 Delivery Mechanical Ventilator O2 Flow Rate 50.00 FiO2 50 Capillary Refill : Less Than 3 Seconds I&O Intake and Output 03/13/20 00:00 Intake Total 3662 ml Output Total 500 ml Balance 3162 ml Intake Oral 120 ml IV Total 3162 ml Tube Feeding 280 ml Other 100 ml Output Urine Total 500 ml General: Other (sedated and intubated) HEENT: Atraumatic Lungs: Other (ventilator dependent) Heart: Other (bradycardia sinus rhythm) Neuro: Other (sedated and intubated) Psych/Mental Status: Other (sedated and intubated) Results Lab Laboratory Tests 03/13/20 03:50 A/P-Cardiology Admission Diagnosis Proximal atrial tachycardia Acute respiratory failure ARDS COVID-19 pneumonia Assessment/Plan Paroxysmal supraventricular tachycardia, currently in sinus bradycardia with a heart rate in the 40s, probably secondary to respiratory failure and dexamethasone treatment. Blood pressure is stable. Does not need to initiate any new treatment option, I will avoid the use of beta blockers and/or calcium channel blockers at this point. Continue to monitor heart rate, use IV fluid for support and we can use atropine for severe bradycardia Acute respiratory failure secondary to pneumonia with ARDS, COVID-19. Managed by Dr. Vidal Status post septic shock with pneumonia, improving. Continue to monitor X No change in cardiac status. Continue to monitor Clinical Quality Measures DVT/VTE Risk/Contraindication: Risk Factor Score Per Nursin RFS Level Per Nursing on Admit: 4+=Very High QUITA THOMSON MD Mar 13, 2020 09:48
[2020-03-13 10:56] VITALS: BP 129/46
[2020-03-13] MEDS: ENOXAPARIN 300 MG/3 ML (LOVENOX) MULTI-DOSE VIAL SQ SCH (11:26)
[2020-03-13] MEDS: NS IV 1000 ML 1,000 ML IV SCH (14:23)
[2020-03-13] MEDS: MIDAZOLAM DRIP PRE-MIX 100 ML IV SCH (14:23)
[2020-03-13 15:09] VITALS: BP 151/65
[2020-03-13] MEDS ORDERED: VANCOMYCIN INJECTION 0.1 MG in NS (IVPB) 250 ML IV SCH (16:45)
--- NOTE | 2020-03-13 16:55 | NUR ---
PTD VANCOMYCIN (NOTE: PATIENT RECEIVED 1G 03/13 @ 0445). 141.3KG, SCr 1.04, CrCl 97.3, BMI 42.7. LOADING DOSE 20MG/KG x 141.3 KG ~ 2G, MAINT DOSE 15MG/KG x 141.3 KG ~1500MG (ROUNDING DOWN). VANCOMYCIN TROUGH DUE 03/15 @ 0400. IF TROUGH >20, HOLD DOSE & NOTIFY PHARMACY FOR ADJUSTMENTS. Addendum: 03/13/20 at 1656 by CLARE ROWELL [facility] MAINT DOSE 1500MG Q12H
[2020-03-13] MEDS ORDERED: VANCOMYCIN 2000 MG/NS 500 ML IVPB IV NR ×2 (17:00)
[2020-03-13 19:39] VITALS: BP 151/65
[2020-03-13 23:51] VITALS: BP 144/63
[2020-03-14] MEDS: MEROPENEM 500 MG in WATER (STERILE) FOR INJECTION 10 ML IV SCH ×5 (00:28→23:03)
[2020-03-14] MEDS: inSUlin ASPART (NovoLOG) 1 UNIT/0.01 ML (CHARGE PER UNIT) SC SCH ×5 (00:28→23:04)
[2020-03-14] MEDS: ENOXAPARIN 300 MG/3 ML (LOVENOX) MULTI-DOSE VIAL SQ SCH ×3 (00:29→23:05)
[2020-03-14] MEDS: PROPOFOL DRIP (ICU) 100 ML IV SCH ×5 (02:02→23:03)
[2020-03-14] MEDS: MIDAZOLAM DRIP PRE-MIX 100 ML IV SCH (02:03)
[2020-03-14 03:17] VITALS: BP 138/61
[2020-03-14] MEDS: RT-ALBUTEROL INHALER HFA (VENTOLIN HFA) 18 GM IH SCH ×6 (03:17→23:18)
[2020-03-14 03:53] LABS: BASOPHILS % (AUTO) 0 % (0-10); EOSINOPHILS % (AUTO) 0 % (0-10); HEMATOCRIT 33 % (40-54); HEMOGLOBIN 10.7 g/dL (13.3-17.7); LYMPHOCYTES # (AUTO) 0.3 10^3/uL (1.0-4.0); LYMPHOCYTES % (AUTO) 3 % (12-44); MEAN CORPUSCULAR HEMOGLOBIN 28 pg (25-34); MEAN CORPUSCULAR HGB CONC 33 g/dL (32-36); MEAN CORPUSCULAR VOLUME 86 fL (80-99); MEAN PLATELET VOLUME 11.2 fL (9.0-12.2); MONOCYTES # (AUTO) 0.2 10^3/uL (0.0-1.0); MONOCYTES % (AUTO) 2 % (0-12); NEUTROPHILS # (AUTO) 9.1 10^3/uL (1.8-7.8); NEUTROPHILS % (AUTO) 87 % (42-75); PLATELET COUNT 211 10^3/uL (130-400); WHITE BLOOD COUNT 10.4 10^3/uL (4.3-11.0)
[2020-03-14 03:54] LABS: ABG BASE EXCESS -2.2 MMOL/L (-2.5-2.5); ABG OXYGEN SATURATION 98 % (94-100); ABG PCO2 38 MMHG (35-45); ABG PH 7.38 (7.37-7.43); ABG PO2 101 MMHG (79-93); ABG TCO2 23.3 MMOL/L (21.0-31.0); ALLENS TEST YES-POS
[2020-03-14 03:55] LABS: INSPIRED O2 NOT INDICATED; PATIENT TEMP 36.4; VENTILATOR YES
[2020-03-14 04:03] LABS: CHLORIDE 115 MMOL/L (98-107); POTASSIUM 4.4 MMOL/L (3.6-5.0); SODIUM 144 MMOL/L (135-145)
[2020-03-14 04:04] LABS: CALCIUM 8.2 MG/DL (8.5-10.1); GLUCOSE 164 MG/DL (70-105)
[2020-03-14 04:06] LABS: CARBON DIOXIDE 20 MMOL/L (21-32)
[2020-03-14 04:08] LABS: CREATININE SERUM 0.74 MG/DL (0.60-1.30); GFR ESTIMATED > 60; PHOSPHORUS 3.1 MG/DL (2.3-4.7)
--- NOTE | 2020-03-14 04:08 | Pulmonary Progress Note ---
Subjective Time Seen by a Provider: 04:07 Sepsis Event Evaluation Height, Weight, BMI Height: 5'9.00" Weight: 285lbs. 0.0oz. 129.767003tu; 38.34 BMI Method: Focused Exam Lactate Level 03/13/20 05:40: Lactic Acid Level 0.99 Exam Exam Vital Signs Date Time Temp Pulse Resp B/P (MAP) Pulse Ox O2 Delivery O2 Flow Rate FiO2 03/14/20 03:17 43 25 95 50 03/14/20 03:00 45 21 129/58 94 Mechanical Ventilator 50.00 03/14/20 02:00 54 16 180/79 93 Mechanical Ventilator 50.00 03/14/20 01:00 44 03/14/20 01:00 44 21 139/61 94 Mechanical Ventilator 50.00 03/14/20 00:00 43 20 137/61 94 Mechanical Ventilator 50.00 03/14/20 00:00 36.4 03/13/20 23:51 43 26 95 50 03/13/20 23:00 44 20 143/62 95 Mechanical Ventilator 50.00 03/13/20 22:00 44 24 137/59 94 Mechanical Ventilator 50.00 03/13/20 21:00 Mechanical Ventilator 50 03/13/20 21:00 45 18 141/60 96 Mechanical Ventilator 50.00 03/13/20 20:19 46 142/60 03/13/20 20:00 43 18 145/62 95 Mechanical Ventilator 50.00 03/13/20 20:00 36.4 03/13/20 19:39 49 26 94 50 03/13/20 19:00 46 03/13/20 19:00 44 23 140/60 95 Mechanical Ventilator 50.00 03/13/20 18:00 49 23 142/60 93 Mechanical Ventilator 50.00 03/13/20 17:00 47 24 140/64 96 Mechanical Ventilator 50.00 03/13/20 16:00 50 24 158/68 96 Mechanical Ventilator 50.00 03/13/20 15:46 36.2 03/13/20 15:46 49 151/65 03/13/20 15:09 49 26 94 50 03/13/20 15:00 49 22 151/65 94 Mechanical Ventilator 50.00 03/13/20 14:00 51 14 100/97 100 Mechanical Ventilator 50.00 03/13/20 13:00 44 18 123/46 99 Mechanical Ventilator 50.00 03/13/20 12:58 52 03/13/20 12:00 56 16 126/46 97 Mechanical Ventilator 50.00 03/13/20 11:26 36.2 03/13/20 11:00 51 19 131/46 97 Mechanical Ventilator 50.00 03/13/20 10:56 52 29 98 50 03/13/20 10:43 43 124/51 03/13/20 10:00 43 23 124/51 96 Mechanical Ventilator 50.00 03/13/20 09:00 42 21 132/54 98 Mechanical Ventilator 50.00 03/13/20 08:48 Mechanical Ventilator 50.00 03/13/20 08:35 95 Mechanical Ventilator 50 03/13/20 08:28 36.8 03/13/20 08:00 41 18 123/49 100 Mechanical Ventilator 55.00 03/13/20 07:31 46 33 99 75 03/13/20 07:00 60 03/13/20 07:00 49 21 140/65 96 Mechanical Ventilator 55.00 03/13/20 06:00 52 19 168/75 94 Mechanical Ventilator 55.00 03/13/20 05:45 46 142/66 03/13/20 05:00 48 15 146/66 94 Mechanical Ventilator 55.00 03/13/20 04:16 36.4 I & O 03/14/20 07:00 Intake Total 3207 ml Output Total 2450 ml Balance 757 ml Height & Weight Height: 5'9.00" Weight: 285lbs. 0.0oz. 129.833361nc; 38.34 BMI Method: General Appearance: Other (sedated on vent ) HEENT: PERRL/EOMI Neck: Full Range of Motion, Supple, Carotid Bruit Respiratory: Other (ventilatory dependent) Cardiovascular: Regular Rate, Rhythm Capillary Refill: Less Than 3 Seconds Gastrointestinal: normal bowel sounds, non tender, soft Extremity: No Pedal Edema Neurologic/Psychiatric: Other (sedated and intubated) Skin: Normal Color, Warm/Dry Results Lab Laboratory Tests 03/13/20 03:50 03/14/20 03:40 Assessment/Plan Assessment/Plan Acute respiratory distress secondary to COVID - 19 with severe ARDS -Continue vent -Check BNP, and DDIMer -repeat sandhu cultures -Advanco Abx to Vanco and Merrem -TF -Decrease sedation. -Daily sedation vacation while supine position. - PEEP 14 -[place] body weight -- 76.8 VT 460 and increase RR to 24 -remdesivir, and CVP Septic shock pneumonia -Continue Cefepime, Azithromycin -Sandhu cultures pending -LA is normal -Give 30cc/kg of IVF -D/C Levophed , neosynephrin and vasopressin are off DVT/GI ppx -Lovenox, and protonix BETH FALL DO Mar 14, 2020 04:07
[2020-03-14 04:09] LABS: BUN/CREATININE RATIO 80
[2020-03-14 04:10] LABS: MAGNESIUM 2.9 MG/DL (1.6-2.4)
[2020-03-14] MEDS: VANCOMYCIN 1500 MG/NS 500 ML IVPB IV SCH ×4 (05:33→17:22)
[2020-03-14] MEDS: MAGNESIUM 1 GM/100 ML IVPB 100 ML IV SCH (06:02)
[2020-03-14] MEDS: KCL 20 MEQ TAB (K-DUR) PO SCH (06:02)
[2020-03-14] MEDS: POTASSIUM CL 10MEQ/50ML IVPB 50 ML IV SCH (06:02)
[2020-03-14 06:51] VITALS: BP 139/61
--- NOTE | 2020-03-14 09:00 | Diagnostic Imaging Report ---
INDICATION: Respiratory failure AP view of the chest is obtained with comparison made to study of one day earlier. Given differences in positioning, there may be mild overall worsening of bilateral airspace disease. No pneumothorax is seen. Support tubes remain in stable position. IMPRESSION: Continued bilateral airspace disease may be slightly worsened compared to previous study. No other definite change is appreciated. Dictated by: Dictated on workstation # [id number]
[2020-03-14] MEDS ORDERED: fentaNYL DRIP PRE-MIX 250 ML IV ONE ×2 (09:05→20:59)
[2020-03-14] MEDS: PANTOPRAZOLE 40 MG (PROTONIX) VIAL IV SCH (09:06)
[2020-03-14] MEDS: dexAMETHasone INJECTION 20 MG in NS (IVPB) 50 ML IV SCH (09:06)
[2020-03-14] MEDS: fentaNYL DRIP PRE-MIX 250 ML IV SCH ×2 (09:08→21:01)
--- NOTE | 2020-03-14 10:20 | Cardiology Progress Note ---
Subjective Date Seen by Provider: Mar 14, 2020 Time Seen by Provider: 10:19 Subjective/Events-last exam Patient is sedated and intubated, worsening bradycardia. Blood pressure stable Review of Systems General: Other (sedated and intubated) Focused Exam Lactate Level 03/13/20 05:40: Lactic Acid Level 0.99 Objective-Cardiology Exam Last Set of Vital Signs Vital Signs 03/14/20 03/14/20 03/14/20 09:12 09:15 10:00 Temp 36.1 Pulse 40 Resp 21 B/P (MAP) 124/57 Pulse Ox 98 O2 Delivery Mechanical Ventilator O2 Flow Rate 50.00 FiO2 50 Capillary Refill : Less Than 3 Seconds I&O Intake and Output 03/14/20 00:00 Intake Total 3662 ml Output Total 2220 ml Balance 1442 ml IV Total 2752 ml Tube Feeding 760 ml Other 150 ml Output Urine Total 2220 ml # Voids 1 General: Other (sedated and intubated) HEENT: Atraumatic Lungs: Other (ventilator dependent) Heart: Other (bradycardia sinus rhythm) Neuro: Other (sedated and intubated) Psych/Mental Status: Other (sedated and intubated) Results Lab Laboratory Tests 03/14/20 03:40 A/P-Cardiology Admission Diagnosis Proximal atrial tachycardia Acute respiratory failure ARDS COVID-19 pneumonia Assessment/Plan Paroxysmal supraventricular tachycardia, currently in sinus bradycardia with a heart rate in the 40s, probably secondary to respiratory failure and dexamethasone treatment. Blood pressure is stable. I discussed the management plan with Dr. Vidal, his blood pressure is stable, does not require temporary pacemaker at this point and we will continue to monitor closely Acute respiratory failure secondary to pneumonia with ARDS, COVID-19. Managed by Dr. Vidal Status post septic shock with pneumonia, improving. Continue to monitor X No change in cardiac status. Continue to monitor Clinical Quality Measures DVT/VTE Risk/Contraindication: Risk Factor Score Per Nursin RFS Level Per Nursing on Admit: 4+=Very High QUITA THOMSON MD Mar 14, 2020 10:20
[2020-03-14 10:34] VITALS: BP 127/53
[2020-03-14 14:58] VITALS: BP 141/63
[2020-03-14] MEDS: NS IV 1000 ML 1,000 ML IV SCH (16:09)
[2020-03-14 19:12] VITALS: BP 146/62
[2020-03-14 23:18] VITALS: BP 146/62
--- NOTE | 2020-03-15 00:17 | NUR ---
Tube feeding held at this time, pt not tolerating at this time, will reassess later.
[2020-03-15 02:33] VITALS: BP 145/62
[2020-03-15] MEDS: RT-ALBUTEROL INHALER HFA (VENTOLIN HFA) 18 GM IH SCH ×4 (02:33→14:47)
[2020-03-15 03:52] LABS: ABG BASE EXCESS 0.1 MMOL/L (-2.5-2.5); ABG OXYGEN SATURATION 95 % (94-100); ABG PCO2 39 MMHG (35-45); ABG PH 7.41 (7.37-7.43); ABG PO2 74 MMHG (79-93); ABG TCO2 25.5 MMOL/L (21.0-31.0); BASOPHILS % (AUTO) 0 % (0-10); EOSINOPHILS % (AUTO) 0 % (0-10); HEMATOCRIT 33 % (40-54); HEMOGLOBIN 10.5 g/dL (13.3-17.7); INSPIRED O2 30%; LYMPHOCYTES # (AUTO) 0.4 10^3/uL (1.0-4.0); LYMPHOCYTES % (AUTO) 4 % (12-44); MEAN CORPUSCULAR HEMOGLOBIN 28 pg (25-34); MEAN CORPUSCULAR HGB CONC 32 g/dL (32-36); MEAN CORPUSCULAR VOLUME 86 fL (80-99); MEAN PLATELET VOLUME 11.3 fL (9.0-12.2); MONOCYTES # (AUTO) 0.4 10^3/uL (0.0-1.0); MONOCYTES % (AUTO) 4 % (0-12); NEUTROPHILS # (AUTO) 8.3 10^3/uL (1.8-7.8); NEUTROPHILS % (AUTO) 82 % (42-75); PATIENT TEMP 97.8; PLATELET COUNT 219 10^3/uL (130-400); VENTILATOR YES; WHITE BLOOD COUNT 10.1 10^3/uL (4.3-11.0)
[2020-03-15] MEDS ORDERED: TROUGH ORDER-PHARMACY XX NR (04:00)
--- NOTE | 2020-03-15 04:06 | Pulmonary Progress Note ---
Subjective Time Seen by a Provider: 04:02 Subjective/Events-last exam Pt is sedated on vent. Sepsis Event Evaluation Height, Weight, BMI Height: 5'9.00" Weight: 285lbs. 0.0oz. 129.416571lv; 38.34 BMI Method: Focused Exam Lactate Level 03/13/20 05:40: Lactic Acid Level 0.99 Exam Exam Vital Signs Date Time Temp Pulse Resp B/P (MAP) Pulse Ox O2 Delivery O2 Flow Rate FiO2 03/15/20 03:00 43 27 96 Mechanical Ventilator 30.00 03/15/20 02:33 45 24 95 30 03/15/20 02:00 44 23 94 Mechanical Ventilator 30.00 03/15/20 01:32 Mechanical Ventilator 30.00 03/15/20 01:00 46 03/15/20 01:00 46 23 96 Mechanical Ventilator 35.00 03/15/20 00:00 45 21 94 Mechanical Ventilator 35.00 03/14/20 23:18 48 16 97 45 03/14/20 23:08 Mechanical Ventilator 35.00 03/14/20 23:00 64 21 95 Mechanical Ventilator 40.00 03/14/20 22:53 37.3 03/14/20 22:00 48 21 95 Mechanical Ventilator 40.00 03/14/20 21:00 48 24 96 Mechanical Ventilator 40.00 03/14/20 21:00 Mechanical Ventilator 40 03/14/20 21:00 Mechanical Ventilator 40.00 03/14/20 20:22 37.4 03/14/20 20:00 49 21 97 Mechanical Ventilator 45.00 03/14/20 19:12 48 16 97 45 03/14/20 19:00 48 03/14/20 19:00 48 21 97 Mechanical Ventilator 45.00 03/14/20 18:00 52 23 144/61 96 Mechanical Ventilator 45.00 03/14/20 17:24 51 148/63 03/14/20 17:00 51 26 148/63 96 Mechanical Ventilator 45.00 03/14/20 16:00 53 18 142/62 92 Mechanical Ventilator 45.00 03/14/20 15:32 36.6 03/14/20 15:00 52 18 134/60 94 Mechanical Ventilator 45.00 03/14/20 14:58 57 24 97 45 03/14/20 14:00 44 24 127/56 95 Mechanical Ventilator 50.00 03/14/20 13:15 51 145/65 03/14/20 13:00 43 03/14/20 13:00 43 20 126/56 96 Mechanical Ventilator 50.00 03/14/20 12:00 43 20 128/57 97 Mechanical Ventilator 50.00 03/14/20 11:20 36.3 03/14/20 11:00 42 23 129/54 95 Mechanical Ventilator 50.00 03/14/20 10:34 42 24 96 50 03/14/20 10:00 40 21 124/57 98 Mechanical Ventilator 50.00 03/14/20 09:15 94 Mechanical Ventilator 50 03/14/20 09:12 36.1 03/14/20 09:06 59 179/78 03/14/20 09:00 40 21 134/57 100 Mechanical Ventilator 50.00 03/14/20 08:00 59 19 179/78 94 Mechanical Ventilator 50.00 03/14/20 07:00 44 23 138/60 94 Mechanical Ventilator 50.00 03/14/20 07:00 44 03/14/20 06:51 44 27 94 50 03/14/20 06:00 44 18 133/62 94 Mechanical Ventilator 50.00 03/14/20 05:00 44 20 136/60 94 Mechanical Ventilator 50.00 03/14/20 04:11 35.6 I & O 03/15/20 07:00 Intake Total 2622 ml Output Total 1350 ml Balance 1272 ml Height & Weight Height: 5'9.00" Weight: 285lbs. 0.0oz. 129.149659xj; 38.34 BMI Method: General Appearance: Other (sedated on vent ) HEENT: PERRL/EOMI Neck: Full Range of Motion, Supple, Carotid Bruit Respiratory: Other (ventilatory dependent) Cardiovascular: Regular Rate, Rhythm Capillary Refill: Less Than 3 Seconds Gastrointestinal: normal bowel sounds, non tender, soft Extremity: No Pedal Edema Neurologic/Psychiatric: Other (sedated and intubated) Skin: Normal Color, Warm/Dry Results Lab Laboratory Tests 03/14/20 03:40 03/15/20 03:40 Assessment/Plan Assessment/Plan Acute respiratory distress secondary to COVID - 19 with severe ARDS -Continue vent -repeat sandhu cultures -Advanco Abx to Vanco and Merrem -TF -Decrease sedation. -Daily sedation vacation while supine position. - PEEP 12 -- Decrease to 10 -[place] body weight -- 76.8 VT 460 and increase RR to 24 -remdesivir, and CVP Septic shock pneumonia -Continue Cefepime, Azithromycin -Sandhu cultures pending -LA is normal -Give 30cc/kg of IVF -D/C Levophed , neosynephrin and vasopressin are off DVT/GI ppx -Lovenox, and protonix BETH FALL DO Mar 15, 2020 04:06
--- NOTE | 2020-03-15 04:08 | Pulmonary Progress Note ---
Subjective Time Seen by a Provider: 04:07 Sepsis Event Evaluation Height, Weight, BMI Height: 5'9.00" Weight: 285lbs. 0.0oz. 129.502074oo; 38.34 BMI Method: Focused Exam Lactate Level 03/13/20 05:40: Lactic Acid Level 0.99 Exam Exam Vital Signs Date Time Temp Pulse Resp B/P (MAP) Pulse Ox O2 Delivery O2 Flow Rate FiO2 03/15/20 03:00 43 27 96 Mechanical Ventilator 30.00 03/15/20 02:33 45 24 95 30 03/15/20 02:00 44 23 94 Mechanical Ventilator 30.00 03/15/20 01:32 Mechanical Ventilator 30.00 03/15/20 01:00 46 03/15/20 01:00 46 23 96 Mechanical Ventilator 35.00 03/15/20 00:00 45 21 94 Mechanical Ventilator 35.00 03/14/20 23:18 48 16 97 45 03/14/20 23:08 Mechanical Ventilator 35.00 03/14/20 23:00 64 21 95 Mechanical Ventilator 40.00 03/14/20 22:53 37.3 03/14/20 22:00 48 21 95 Mechanical Ventilator 40.00 03/14/20 21:00 48 24 96 Mechanical Ventilator 40.00 03/14/20 21:00 Mechanical Ventilator 40 03/14/20 21:00 Mechanical Ventilator 40.00 03/14/20 20:22 37.4 03/14/20 20:00 49 21 97 Mechanical Ventilator 45.00 03/14/20 19:12 48 16 97 45 03/14/20 19:00 48 03/14/20 19:00 48 21 97 Mechanical Ventilator 45.00 03/14/20 18:00 52 23 144/61 96 Mechanical Ventilator 45.00 03/14/20 17:24 51 148/63 03/14/20 17:00 51 26 148/63 96 Mechanical Ventilator 45.00 03/14/20 16:00 53 18 142/62 92 Mechanical Ventilator 45.00 03/14/20 15:32 36.6 03/14/20 15:00 52 18 134/60 94 Mechanical Ventilator 45.00 03/14/20 14:58 57 24 97 45 03/14/20 14:00 44 24 127/56 95 Mechanical Ventilator 50.00 03/14/20 13:15 51 145/65 03/14/20 13:00 43 03/14/20 13:00 43 20 126/56 96 Mechanical Ventilator 50.00 03/14/20 12:00 43 20 128/57 97 Mechanical Ventilator 50.00 03/14/20 11:20 36.3 03/14/20 11:00 42 23 129/54 95 Mechanical Ventilator 50.00 03/14/20 10:34 42 24 96 50 03/14/20 10:00 40 21 124/57 98 Mechanical Ventilator 50.00 03/14/20 09:15 94 Mechanical Ventilator 50 03/14/20 09:12 36.1 03/14/20 09:06 59 179/78 03/14/20 09:00 40 21 134/57 100 Mechanical Ventilator 50.00 03/14/20 08:00 59 19 179/78 94 Mechanical Ventilator 50.00 03/14/20 07:00 44 23 138/60 94 Mechanical Ventilator 50.00 03/14/20 07:00 44 03/14/20 06:51 44 27 94 50 03/14/20 06:00 44 18 133/62 94 Mechanical Ventilator 50.00 03/14/20 05:00 44 20 136/60 94 Mechanical Ventilator 50.00 03/14/20 04:11 35.6 I & O 03/15/20 07:00 Intake Total 2622 ml Output Total 1350 ml Balance 1272 ml Height & Weight Height: 5'9.00" Weight: 285lbs. 0.0oz. 129.919618dd; 38.34 BMI Method: General Appearance: Other (sedated on vent ) HEENT: PERRL/EOMI Neck: Full Range of Motion, Supple, Carotid Bruit Respiratory: Other (ventilatory dependent) Cardiovascular: Regular Rate, Rhythm Capillary Refill: Less Than 3 Seconds Gastrointestinal: normal bowel sounds, non tender, soft Extremity: No Pedal Edema Neurologic/Psychiatric: Other (sedated and intubated) Skin: Normal Color, Warm/Dry Results Lab Laboratory Tests 03/14/20 03:40 03/15/20 03:40 Assessment/Plan Assessment/Plan Acute respiratory distress secondary to COVID - 19 with severe ARDS -Continue vent -repeat sandhu cultures -Merrem -- D/C vanco -Will attempt to transfer to [facility]. D/C proning. -Change IVF to LR -Decrease Decadron to 10mg daily -TF -Decrease sedation. -Daily sedation vacation while supine position. - Decrease PEEP to 8 -[place] body weight -- 76.8 VT 460 and increase RR to 24 -s/p remdesivir, and CVP Septic shock pneumonia -Continue Cefepime, Azithromycin -Sandhu cultures pending -LA is normal -Give 30cc/kg of IVF -D/C Levophed , neosynephrin and vasopressin are off DVT/GI ppx -Lovenox, and protonix BETH FALL DO Mar 15, 2020 04:08
[2020-03-15 04:13] LABS: CHLORIDE 115 MMOL/L (98-107); POTASSIUM 4.5 MMOL/L (3.6-5.0); SODIUM 145 MMOL/L (135-145)
[2020-03-15 04:14] LABS: CALCIUM 8.3 MG/DL (8.5-10.1)
[2020-03-15 04:15] LABS: GLUCOSE 143 MG/DL (70-105)
[2020-03-15] MEDS ORDERED: LACTATED RINGERS 1,000 ML IV SCH (04:15)
[2020-03-15 04:16] LABS: CARBON DIOXIDE 22 MMOL/L (21-32)
[2020-03-15 04:18] LABS: PHOSPHORUS 2.9 MG/DL (2.3-4.7)
[2020-03-15] MEDS: PROPOFOL DRIP (ICU) 100 ML IV SCH ×3 (04:18→15:49)
[2020-03-15 04:19] LABS: CREATININE SERUM 0.71 MG/DL (0.60-1.30); GFR ESTIMATED > 60
[2020-03-15 04:20] LABS: BUN/CREATININE RATIO 83
[2020-03-15 04:21] LABS: MAGNESIUM 2.7 MG/DL (1.6-2.4)
[2020-03-15 04:31] LABS: VANCOMYCIN,TROUGH 20.4 UG/ML (10.0-20.0)
[2020-03-15] MEDS: MEROPENEM 500 MG in WATER (STERILE) FOR INJECTION 10 ML IV SCH ×2 (05:17→13:33)
[2020-03-15 05:18] LABS: BAND NEUTROPHILS 2 %; LYMPHOCYTES % (MANUAL) 3 %; METAMYELOCYTES % 2 %; MONOCYTES % (MANUAL) 3 %; NEUTROPHILS % (MANUAL) 90 %; POLYCHROMASIA SLIGHT
[2020-03-15] MEDS: inSUlin ASPART (NovoLOG) 1 UNIT/0.01 ML (CHARGE PER UNIT) SC SCH ×2 (05:18→15:49)
[2020-03-15] MEDS: POTASSIUM CL 10MEQ/50ML IVPB 50 ML IV SCH (05:21)
[2020-03-15] MEDS: KCL 20 MEQ TAB (K-DUR) PO SCH (05:21)
[2020-03-15] MEDS: MAGNESIUM 1 GM/100 ML IVPB 100 ML IV SCH (05:21)
[2020-03-15 07:23] VITALS: BP 157/59
--- NOTE | 2020-03-15 07:47 | Physical Therapy Progress Note ---
Therapy Progress Note Performed UE/LE PROM through multiple planes. OBI KAHN PT Mar 15, 2020 07:47
[2020-03-15] MEDS: PANTOPRAZOLE 40 MG (PROTONIX) VIAL IV SCH (08:35)
--- NOTE | 2020-03-15 08:46 | Diagnostic Imaging Report ---
EXAMINATION: Chest 1 view HISTORY: COVID positive, ventilated. COMPARISON: Chest radiograph 03/14/2020 FINDINGS: Heart size and pulmonary vasculature are stable. Lines and tubes are unchanged. Increasing patchy interstitial and airspace opacities throughout both lungs, greatest within the left upper lung. No pleural effusion or pneumothorax. The osseous structures are intact. IMPRESSION: 1. Increasing bilateral airspace and interstitial opacities compatible with multifocal pneumonia and history of Covid-19. Report was faxed to [facility]RN Infection Control by [facility] at 8:45am. Dictated by: Dictated on workstation # [id number]
[2020-03-15] MEDS ORDERED: fentaNYL DRIP PRE-MIX 250 ML IV ONE (09:43)
[2020-03-15] MEDS: fentaNYL DRIP PRE-MIX 250 ML IV SCH (09:43)
--- NOTE | 2020-03-15 09:55 | Cardiology Progress Note ---
Subjective Date Seen by Provider: Mar 15, 2020 Time Seen by Provider: 09:54 Subjective/Events-last exam Patient is sedated and intubated Review of Systems General: Other (unable to provide review of systems) Focused Exam Lactate Level 03/13/20 05:40: Lactic Acid Level 0.99 Objective-Cardiology Exam Last Set of Vital Signs Vital Signs 03/15/20 03/15/20 03/15/20 03/15/20 03/15/20 06:00 07:23 07:47 09:00 09:43 Temp 34.1 Pulse 46 Resp 24 B/P (MAP) 177/68 Pulse Ox 79 O2 Delivery Mechanical Ventilator O2 Flow Rate 28.00 FiO2 40 Capillary Refill : Less Than 3 Seconds I&O Intake and Output 03/14/20 23:59 Intake Total 4182 ml Output Total 1500 ml Balance 2682 ml IV Total 3192 ml Tube Feeding 840 ml Other 150 ml Output Urine Total 1500 ml General: Other (sedated and intubated) HEENT: Atraumatic Lungs: Other (ventilator dependent) Heart: Other (bradycardia sinus rhythm) Neuro: Other (sedated and intubated) Psych/Mental Status: Other (sedated and intubated) Results Lab Laboratory Tests 03/15/20 03:40 A/P-Cardiology Admission Diagnosis Proximal atrial tachycardia Acute respiratory failure ARDS COVID-19 pneumonia Assessment/Plan Paroxysmal supraventricular tachycardia, currently in sinus bradycardia with a heart rate in the 40s, probably secondary to respiratory failure and dexamethasone treatment. Blood pressure is stable. Heart rate is slightly better today, continue to monitor no changes Acute respiratory failure secondary to pneumonia with ARDS, COVID-19. Managed by Dr. Vidal Status post septic shock with pneumonia, improving. Continue to monitor No change in cardiac status. Continue to monitor Possible transfer to [facility] Clinical Quality Measures DVT/VTE Risk/Contraindication: Risk Factor Score Per Nursin RFS Level Per Nursing on Admit: 4+=Very High QUITA THOMSON MD Mar 15, 2020 09:55
[2020-03-15 10:40] VITALS: BP 135/53
[2020-03-15] MEDS: ENOXAPARIN 300 MG/3 ML (LOVENOX) MULTI-DOSE VIAL SQ SCH (13:33)
[2020-03-15 14:48] VITALS: BP 143/56
--- NOTE | 2020-03-15 15:15 | NUR ---
During care rounds, it was noted that pt's OG tube was readvanced and TF would be reinitiated at rate of 35ml/hr with 25ml water flushes q4h. Would recommend increases of 10ml q8h as tolerated, toward goal rate of 55ml/hr. Will continue to follow and reassess as pt needs, intake, and status change. Varghese Mo, MS RD LD [phone] (cell)
--- NOTE | 2020-03-15 17:57 | NUR ---
CM/SS finalized discharge. Plan: Patient will discharge to [facility] for further care. CM/SS faxed referral per request of physician. Patient was accepted and family was notified according to Moshe at [place]. No further needs.
[2020-03-15 18:54] VITALS: BP 176/69
--- NOTE | 2020-04-05 20:49 | Physician Query Clarification ---
PQ-Intro New Diagnosis Admission/Discharge Admission Date: Mar 08, 2020 at 21:10 Discharge Date: Mar 15, 2020 at 17:50 SERA Dimas DO The medical record reflects the following clinical scenario: History/Risk Factors: [list no more than 2] Clinical Findings: [list no more than 2] Treatment: [list no more than 2] Question: What condition best reflects the above clinical scenario? Please document a response in the Progress Noter or Discharge Summary. 1. [list #1 diagnosis choice/organism] 2. [list the diagnosis/condition already documented] 3. Other, with explanation of the clinical findings. 4. Clinically undetermined, no explanation for the clinical findings. Please remember a lack of response to the above will prompt a phone page by [facility] staff. In responding to this query, please exercise your independent professional j udgment. The purpose of this communication is to more accurately reflect the complexity of your patients condition. The fact that a question is asked does not imply that any particular answer is desired or expected. Thank you for your timely response to this clarification. Requestors name: [ ] Phone # [ ] THIS PHYSICIAN QUERY FORM IS A PERMANENT PART OF THE MEDICAL RECORD MARIVEL ABAD Apr 05, 2020 20:49
== END 2020-03-15 17:50 | DRG 870 ==
LOC: ICU 21:10
PROVIDERS: ADMIT Internal Medicine; ATTEND Internal Medicine
PROC: 5A1955Z Respiratory Ventilation, Greater than 96 Consecutive Hours (ICD-10-PCS; principal; 2020-03-08)
PROC: 0BH17EZ Insertion of Endotracheal Airway into Trachea, Via Natural or Artificial Opening (ICD-10-PCS; 2020-03-08)
PROC: XW033E5 Introduction of Remdesivir Anti-infective into Peripheral Vein, Percutaneous Approach, New Technology Group 5 (ICD-10-PCS; 2020-03-09)
DX: A41.89 Other specified sepsis (principal); R65.21 Severe sepsis with septic shock; U07.1 COVID-19; J12.89 Other viral pneumonia; J80 Acute respiratory distress syndrome; I48.20 Chronic atrial fibrillation, unspecified
CPT/HCPCS: 36415; 71045; 80048; 80053; 80202; 81000; 82728; 82805; 82962; 83605; 83735; 83880; 84100; 84145; 84478; 85007; 85025; 85027; 85379; 87040; 87070; 87077; 87081; 87088; 87186; 87205; 93005; 94003; 94640; 94799

== ENCOUNTER → 2020-05-18 | Outpatient (CLI) | payer MEDICARE, OTHER ==
[~2020-05-18] MED LIST changes: +ACET-2840 PO; +ASPI-1238 PO; +BUDE10.2 IH; +CETI10TA4 PO; +DEXA4TAB66 PO; +FAMO20TA5 PO; +LOSA50TA63 PO; +METO-333 PO; +MULT-1136 PO; +RT-ALBUINH INH; +TRIA10.8 NSEACH
== END ==
LOC: WOUNDCARE 09:00
PROVIDERS: ATTEND Surgery
DX: L89.150 Pressure ulcer of sacral region, unstageable (principal); M62.3 Immobility syndrome (paraplegic); U07.1 COVID-19; E66.01 Morbid (severe) obesity due to excess calories
CPT/HCPCS: 11042; G0463

== ENCOUNTER → 2020-05-28 | Outpatient (CLI) | payer MEDICARE, OTHER | LOC: WOUNDCARE 13:00 | PROVIDERS: ATTEND Surgery | DX: L89.150 Pressure ulcer of sacral region, unstageable (principal); M62.3 Immobility syndrome (paraplegic); U07.1 COVID-19; E66.01 Morbid (severe) obesity due to excess calories; I96 Gangrene, not elsewhere classified ==

== ENCOUNTER → 2020-06-01 | Outpatient (CLI) | payer MEDICARE, OTHER | LOC: WOUNDCARE 10:45 | PROVIDERS: ATTEND Surgery | DX: I96 Gangrene, not elsewhere classified (principal); L89.153 Pressure ulcer of sacral region, stage 3; M62.3 Immobility syndrome (paraplegic); U07.1 COVID-19; E66.01 Morbid (severe) obesity due to excess calories | CPT/HCPCS: 11042; G0463 ==

== ENCOUNTER → 2020-06-11 | Outpatient (CLI) | payer MEDICARE, OTHER | LOC: WOUNDCARE 10:30 | PROVIDERS: ATTEND Orthopaedic Surgery Hand Surgery | DX: U07.1 COVID-19 (principal); L89.153 Pressure ulcer of sacral region, stage 3; I96 Gangrene, not elsewhere classified; M62.3 Immobility syndrome (paraplegic); E66.01 Morbid (severe) obesity due to excess calories ==

== ENCOUNTER → 2020-06-22 | Outpatient (CLI) | payer MEDICARE, OTHER | LOC: WOUNDCARE 10:59 | PROVIDERS: ATTEND Surgery | DX: L89.153 Pressure ulcer of sacral region, stage 3 (principal); M62.3 Immobility syndrome (paraplegic); U07.1 COVID-19; E66.01 Morbid (severe) obesity due to excess calories; I96 Gangrene, not elsewhere classified | CPT/HCPCS: 11042 ==

== ENCOUNTER → 2020-07-02 | Outpatient (CLI) | payer MEDICARE, OTHER | LOC: WOUNDCARE 11:00 | PROVIDERS: ATTEND Orthopaedic Surgery Hand Surgery | DX: L89.153 Pressure ulcer of sacral region, stage 3 (principal); M62.3 Immobility syndrome (paraplegic); U07.1 COVID-19; E66.01 Morbid (severe) obesity due to excess calories; I96 Gangrene, not elsewhere classified ==

== ENCOUNTER → 2020-07-06 | Outpatient (CLI) | payer MEDICARE, OTHER | LOC: WOUNDCARE 10:49 | PROVIDERS: ATTEND Surgery | DX: I96 Gangrene, not elsewhere classified (principal); L89.153 Pressure ulcer of sacral region, stage 3; M62.3 Immobility syndrome (paraplegic); U07.1 COVID-19; E66.01 Morbid (severe) obesity due to excess calories | CPT/HCPCS: 11042 ==

== ENCOUNTER → 2020-07-16 | Outpatient (CLI) | payer MEDICARE, OTHER | LOC: WOUNDCARE 11:00 | PROVIDERS: ATTEND Orthopaedic Surgery Hand Surgery | DX: U07.1 COVID-19 (principal); L89.153 Pressure ulcer of sacral region, stage 3; I96 Gangrene, not elsewhere classified; M62.3 Immobility syndrome (paraplegic); E66.01 Morbid (severe) obesity due to excess calories ==

== ENCOUNTER → 2020-07-20 | Outpatient (CLI) | payer MEDICARE, OTHER | LOC: WOUNDCARE 10:49 | PROVIDERS: ATTEND Surgery | DX: I96 Gangrene, not elsewhere classified (principal); L89.153 Pressure ulcer of sacral region, stage 3; M62.3 Immobility syndrome (paraplegic); U07.1 COVID-19; E66.01 Morbid (severe) obesity due to excess calories | CPT/HCPCS: 11042 ==

== ENCOUNTER → 2020-08-06 | Outpatient (CLI) | payer MEDICARE, OTHER | LOC: WOUNDCARE 09:00 | PROVIDERS: ATTEND Orthopaedic Surgery Hand Surgery | DX: I96 Gangrene, not elsewhere classified (principal); L89.153 Pressure ulcer of sacral region, stage 3; M62.3 Immobility syndrome (paraplegic); E66.01 Morbid (severe) obesity due to excess calories; U07.1 COVID-19 ==

== ENCOUNTER 2020-11-09 05:36 | Outpatient (CLI) | payer MEDICARE, OTHER ==
[~2020-11-09] VITALS: Ht 175.3 cm; Wt 109.1 kg
[2020-11-09] MEDS ORDERED: NF-ESOM40C PO (14:51)
[2020-11-09] MEDS ORDERED: POTA10CA43 PO (14:51)
[2020-11-09] MEDS ORDERED: SERT-413 PO (14:51)
[2020-11-09] MEDS ORDERED: LOSA25TA41 PO (14:51)
[2020-11-09] MEDS ORDERED: FURO20TA4 PO (14:51)
[2020-11-09] MEDS ORDERED: LOSA50TA63 PO (14:51)
[2020-11-09] MEDS ORDERED: BUDE10.2 IH (14:51)
[2020-11-09] MEDS ORDERED: LEVO75CA5 PO (14:51)
[2020-11-09] MEDS ORDERED: ASPI-999 PO (14:51)
== END 2020-11-09 14:53 | disposition home or self-care (01) ==
LOC: PREOP 05:36
PROVIDERS: ATTEND Specialist
DX: Z01.818 Encounter for other preprocedural examination (principal)

== ENCOUNTER 2020-11-12 09:04 | Day surgery (SDC) | payer MEDICARE, OTHER ==
[~2020-11-12] VITALS: Ht 175.3 cm; Wt 109.1 kg
[~2020-11-12 09:04] MED LIST changes: +FURO20TA4 PO; +LEVO75CA5 PO; +LOSA25TA41 PO; +NF-ESOM40C PO; +POTA10CA43 PO; +SERT-413 PO
[2020-11-12] MEDS ORDERED: TROPICAMIDE 1% OPH SOLN (MYDRIACYL) 15 ML BTL OU PRN (09:15)
[2020-11-12] MEDS ORDERED: PHENYLEPHRINE 10% OPHTH (NEO-SYN) 5 ML BTL OU PRN (09:15)
[2020-11-12] MEDS: TETRACAINE 0.5% OPHTH SOLN 4 ML BTL (SINGLE DOSE ONLY) OU PRN ×3 (09:23→09:30)
[2020-11-12 09:33] VITALS: BP 141/73
--- NOTE | 2020-11-12 10:16 | Ophthalmologist Pre-Op Note ---
Pre-Operative Progress Note H&P Reviewed The H&P was reviewed, patient examined and no changes noted. Date H&P Reviewed: Nov 12, 2020 Time H&P Reviewed: 10:16 Pre-Op Dx Secondary Cataract, Bilateral Eyes SAM TRINH MD Nov 12, 2020 10:16
--- NOTE | 2020-11-12 10:41 | Ophthalmology Operative Report ---
YAG Capsulotomy PREOPERATIVE DIAGNOSIS: Secondary Cataract Bilateral POSTOPERATIVE DIAGNOSIS: Secondary Cataract Bilateral PROCEDURE: YAG Capsulotomy, Bilateral SURGEON: Cliff Trinh ANESTHESIA: Topical anesthesia COMPLICATIONS: None ESTIMATED BLOOD LOSS: Minimal DESCRIPTION OF PROCEDURE: After proper informed consent was obtained, the patient's, a 70 male , received one drop of Tropicamide and one drop of Tetracaine in each eye. The patient was then placed at the YAG laser and using a power of [ 3.5 ] millijoules and bursts [14 ] right eye and [18 ] left eye were used to fashion a central capsulotomy. The patient tolerated the procedure well without complications. CLIFF TRINH MD Nov 12, 2020 10:41
== END 2020-11-12 10:25 | disposition home or self-care (01) ==
LOC: SDC 09:04
PROVIDERS: ATTEND Specialist
DX: H26.493 Other secondary cataract, bilateral (principal); J30.2 Other seasonal allergic rhinitis; I48.91 Unspecified atrial fibrillation; M19.90 Unspecified osteoarthritis, unspecified site; E03.9 Hypothyroidism, unspecified; R03.0 Elevated blood-pressure reading, without diagnosis of hypertension; Z79.82 Long term (current) use of aspirin; Z98.890 Other specified postprocedural states

== ENCOUNTER → 2020-12-03 | Outpatient (CLI) | payer MEDICARE, OTHER | LOC: LABNPT 08:29 | PROVIDERS: ATTEND Family Medicine | DX: G47.33 Obstructive sleep apnea (adult) (pediatric) (principal); Z20.822 Contact with and (suspected) exposure to COVID-19 | CPT/HCPCS: 87635 ==